=== PATIENT | male | born 1965 | race Caucasian/White ===

== ENCOUNTER → 2017-10-01 | Outpatient (CLI) | payer MEDICARE, BC ==
--- NOTE | 2017-10-01 09:57 | CT ---
EXAMINATION TYPE: CT chest wo con DATE OF EXAM: 10/01/2017 COMPARISON: NONE HISTORY: Exacerbation of asthma CT DLP: 1140.9 mGycm. Automated Exposure Control for Dose Reduction was Utilized. TECHNIQUE: CT scan of the thorax is performed without IV contrast. FINDINGS: LUNGS: There is no peribronchial cuffing or bronchiectasis. No CT sequela of small airway disease. No tree-in-bud opacities. No honeycombing. The lungs are grossly clear, there is no concerning parenchy mal mass or nodule identified. Minimal right basilar subsegmental atelectasis is seen. There is no p leural effusion or pneumothorax seen. The tracheobronchial tree is patent. MEDIASTINUM: Lack of IV contrast is noted to limit evaluation for mediastinal and especially hilar ad enopathy. There are no definitive greater than 1 cm hilar or mediastinal lymph nodes. No cardiomega ly or pericardial effusion is seen. There is mild coronary artery calcifications in the left main and left anterior descending coronary artery. Ascending thoracic aorta and main pulmonary artery and wit hin normal limits. OTHER: Bilateral retroareolar overall symmetric gynecomastia is seen. There is diffuse hypoattenuati on of the hepatic parenchyma most commonly related to hepatic steatosis with sparing around the gallb ladder fossa. Moderate multilevel degenerative changes of the thoracic spine are noted. IMPRESSION: 1. No acute intrathoracic process. Minimal right basilar subsegmental atelectasis. 2. Findings most compatible with hepatic steatosis. 3. Mild coronary artery calcifications within the left main and left anterior descending coronary art bakari, marker for coronary artery disease.
== END | disposition home or self-care (01) ==
LOC: RADCTMAIN 08:33
PROVIDERS: ATTEND Internal Medicine Critical Care Medicine
DX: I25.10 Atherosclerotic heart disease of native coronary artery without angina pectoris (principal)
CPT/HCPCS: 71250

== ENCOUNTER → 2018-01-04 | Day surgery (SDC) | payer MEDICARE, BC ==
[2017-12-26 09:47] VITALS: BMI 49.0
[~2018-01-04] MED LIST: ALPRAZolam 0.25 MG TAB PO PRN; ALPRAZolam 0.5 MG TAB PO PRN; ASPIRIN 325 MG TAB PO STA; ATORVASTATIN 80 MG TAB PO STA; HYDROcodone/APAP 7.5-325MG 1 EACH TAB PO ONE; IOPAMIDOL-370 125ML BTL INJ ONE; LIDOCAINE 2% INJ 20 MG/ML SQ ONE; MIDAZOLAM 2 MG/2 ML VIAL IV ONE; NITROGLYCERIN SL TABS 0.4 MG TAB SUBLINGUAL PRN; RX INFO: IV CONTRAST WAS GIVEN 1 EACH MISC MISCELLANE PRN; SODIUM CHLORIDE 0.9% 1,000 ML IV SCH; SODIUM CHLORIDE 0.9% 1,000 ML in EMPTY BAG 1 BAG IV ONE
[2018-01-04 07:03] VITALS: RESP 18; TEMP 98
[2018-01-04 07:12] LABS: Glucose,Whole Blood 155 mg/dL (75-99)
--- NOTE | 2018-01-04 10:00 | CC ---
CARDIAC CATHETERIZATION REPORT INDICATION: A 52-year-old gentleman with multiple coronary risk factors, who presented to me with progressively worsening exertional shortness of breath. We thought his symptoms were equivalent to angina and patient had been advised to undergo cardiac catheterization for unstable angina. He has been explained of risks, benefits and alternatives, understood and accepted. PROCEDURE NOTE: After obtaining informed consent, left heart catheterization, coronary angiogram and LV gram are performed via the right femoral artery using standard Duncan catheters. The patient received moderate conscious sedation and total sedation time was 19 minutes. A femoral angiogram was performed and Angio-Seal was deployed for hemostasis. FINDINGS: 1. HEMODYNAMICS: Left ventricular end-diastolic pressure is 24 mm. There is no significant gradient across aortic valve. 2. LEFT VENTRICULOGRAM: Left ventriculogram shows a mildly dilated left ventricle with mild LV dysfunction with an ejection fraction of 45%. 3. ANGIOGRAPHIC DATA. Left main coronary artery: Left main coronary artery is a normal-sized vessel and is free of stenosis. Divides into left anterior descending coronary artery and circumflex coronary artery. Circumflex coronary artery and its branches are free of significant stenosis. LAD shows a mild to moderate atherosclerotic plaque in its midportion. At its worse, it seems to be a 40% stenosis. Right coronary artery is a codominant vessel and is free of significant stenosis. CONCLUSIONS: 1. Mild left ventricular systolic dysfunction. 2. Elevated left ventricular end-diastolic pressures. 3. A 40% stenosis involving mid left anterior descending artery. PLAN: 1. I reviewed angiographic data with the patient and told him that his exertional shortness of breath is not related to significant obstructive coronary artery disease. 2. I encouraged him to lose weight and exercise regularly. 3. We are going to control his blood pressures optimally and if necessary, start him on a small dose of Lasix to see if his symptoms would improve. MMODL / IJN: [id number] /
[2018-01-04 10:42] VITALS: PULSE 68
[2018-01-04 14:19] VITALS: BP 143/77
== END ==
LOC: CATHCVL 06:23
PROVIDERS: ATTEND Internal Medicine Cardiovascular Disease
DX: I51.7 Cardiomegaly (principal); I25.110 Atherosclerotic heart disease of native coronary artery with unstable angina pectoris; I10 Essential (primary) hypertension; E78.2 Mixed hyperlipidemia; E66.9 Obesity, unspecified; Z68.42 Body mass index [BMI] 45.0-49.9, adult; E11.9 Type 2 diabetes mellitus without complications; Z82.49 Family history of ischemic heart disease and other diseases of the circulatory system; F32.9 Major depressive disorder, single episode, unspecified; Z79.1 Long term (current) use of non-steroidal anti-inflammatories (NSAID); Z79.899 Other long term (current) drug therapy; Z88.8 Allergy status to other drugs, medicaments and biological substances; Z79.84 Long term (current) use of oral hypoglycemic drugs
CPT/HCPCS: 93458; C1760; C1894; C1769; J2001; J2250; Q9967

== ENCOUNTER 2020-12-12 12:26 | Emergency (ER) | payer MEDICARE, BC ==
[2020-12-12 12:32] VITALS: RESP 18; TEMP 97.4
--- NOTE | 2020-12-12 12:47 | ED ---
General Adult HPI - General Chief complaint: Arrhythmia/Palpitations Stated complaint: palpitations Time Seen by Provider: 12/12/20 12:43 Source: patient Mode of arrival: wheelchair Limitations: no limitations - History of Present Illness Initial comments: Patient presents the ED complaining of having intermittent irregular heart palpitations for the past 3 days. Patient states that he can "feel it in my throat". Patient admits to having mild associated dyspnea at times. Patient denies having any palpitations or symptoms currently. Patient denies alcohol or drug use. Patient denies any recent change in his medications. Patient denies having any pain, fever or chills, headache, focal numbness/weakness/neuro deficit, chest pain or pressure, cough or cold symptoms, dizziness, syncope, abdominal pain, nausea/vomiting/diarrhea, dysuria or urinary symptoms, leg or calf swelling or pain, or any other symptoms or complaints. Patient states that he did take a full dose aspirin earlier today. - Related Data Home Medications Medication Instructions Recorded Confirmed ALPRAZolam [Xanax] 2 mg PO TID PRN 01/12/14 01/04/18 DULoxetine HCL [Cymbalta] 60 mg PO BID 01/12/14 01/04/18 Hydrocodone/Acetaminophen 1 each PO QID PRN 01/12/14 01/04/18 [Hydrocodone/Acetaminophen 7.5-325] Mineral Carbonate [Mineral 300 mg PO QAM 01/12/14 01/04/18 Carbonate ER] Metoprolol Tartrate [Lopressor] 100 mg PO BID 01/12/14 01/04/18 Omeprazole [PriLOSEC] 20 mg PO AC-BID 01/12/14 01/04/18 QUEtiapine [SEROquel] 400 mg PO HS 01/12/14 01/04/18 metFORMIN HCL [Glucophage] 1,000 mg PO BID 01/12/14 01/04/18 Albuterol Inhaler (Mhu) [Ventolin 2 puff INHALATION Q4HR PRN 02/06/14 01/04/18 Inhaler] hydroCHLOROthiazide [Hydrodiuril] 25 mg PO DAILY 02/06/14 01/04/18 INSULIN ASPART (NovoLOG) [NovoLOG] 0 unit SQ AC-TID PRN 05/23/16 01/04/18 Mineral Carbonate 600 mg PO HS 05/23/16 01/04/18 Pioglitazone [Actos] 45 mg PO DAILY 05/23/16 01/04/18 Atorvastatin [Lipitor] 80 mg PO HS 12/26/17 01/04/18 Naproxen [Naprosyn] 500 mg PO Q12HR PRN 12/26/17 01/04/18 lamoTRIgine [LaMICtal] 25 mg PO BID 12/26/17 01/04/18 Allergies Allergy/AdvReac Type Severity Reaction Status Date / Time aripiprazole [From [facility]ilify] AdvReac shakes Verified 12/12/20 12:29 Review of Systems ROS Statement: Those systems with pertinent positive or pertinent negative responses have been documented in the HPI. ROS Other: All systems not noted in ROS Statement are negative. Past Medical History Past Medical History: Asthma, Diabetes Mellitus Additional Past Medical History / Comment(s): uses CPAP History of Any Multi-Drug Resistant Organisms: None Reported Past Surgical History: Appendectomy, Back Surgery, Heart Catheterization Additional Past Surgical History / Comment(s): cervical fusion in [place] Past Anesthesia/Blood Transfusion Reactions: No Reported Reaction Past Psychological History: Bipolar, Schizophrenia Smoking Status: Never smoker Past Alcohol Use History: None Reported Past Drug Use History: None Reported - Past Family History Mother Family Medical History: No Reported History Father Family Medical History: No Reported History General Exam Limitations: no limitations General appearance: alert, in no apparent distress Head exam: Present: atraumatic, normocephalic Eye exam: Present: normal appearance, EOMI ENT exam: Present: mucous membranes moist Neck exam: Present: other (Trachea is in midline) Respiratory exam: Present: normal lung sounds bilaterally. Absent: respiratory distress, wheezes, rales, rhonchi, stridor Cardiovascular Exam: Present: regular rate, normal rhythm, normal heart sounds, other (Normal radial pulses bilaterally) GI/Abdominal exam: Present: soft, other (Obese abdomen). Absent: tenderness, guarding Extremities exam: Present: other (Negative Homans sign bilaterally). Absent: tenderness, pedal edema, calf tenderness Neurological exam: Present: alert, oriented X3. Absent: motor sensory deficit Psychiatric exam: Present: normal affect, normal mood Skin exam: Present: warm, dry, intact, normal color Course Vital Signs 12/12/20 12/12/20 12:29 13:32 Temperature 97.4 F L Pulse Rate 93 70 Respiratory 18 18 Rate Blood Pressure 120/59 125/70 O2 Sat by Pulse 97 98 Oximetry - Reevaluation(s) Reevaluation #1: 12/12/20 14:27 Patient is noted to have very occasional PVCs on the cardiac rn, which coincide with his complaint of palpitations. 12/12/20 15:12 Patient denies development of any new symptoms while in the ED. Patient continues to deny having any chest pain or dyspnea while in the ED. Patient remains alert and breathing comfortably with a normal room air oxygen saturation. Patient is aware of his test results, and he feels comfortable kade g home at this time. EKG Findings - EKG Comments: EKG Findings:: Sinus rhythm with first-degree AV block, NM interval of 236 ms, no ectopy, normal QRS duration, normal QT interval, normal axis, no ST or T-wave abnormality Medical Decision Making - Medical Decision Making Patient is noted to have very occasional PVCs on the cardiac rn, which coincide with this complaint of palpitations. I suspect that the patient's palpitations are likely secondary to these benign PVCs. Patient is also noted to have mild renal insufficiency on laboratory evaluation, and he has been hy drated with 1 L of normal saline in the ED. Patient states that he is aware of his renal insufficiency. Patient's labs are otherwise fairly unremarkable. Patient's troponin is negative. I do not suspect an emergent medical condition at this time. Patient was counseled about palpitations/PVCs and renal insufficiency. 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 Patient was clearly explained return and follow-up instructions. Patient was instructed to have a low threshold for return to the emergency department should his symptoms worsen. Patient feels comfortable with this plan. - Lab Data Result diagrams: 12/12/20 12:59 12/12/20 12:59 Lab Results 12/12/20 12/12/20 12/12/20 Range/Units 12:59 12:59 12:59 WBC 7.3 (3.8-10.6) k/uL RBC 4.23 L (4.30-5.90) m/uL Hgb 12.8 L (13.0-17.5) gm/dL Hct 37.4 L (39.0-53.0) % MCV 88.5 (80.0-100.0) fL MCH 30.2 (25.0-35.0) pg MCHC 34.1 (31.0-37.0) g/dL RDW 14.2 (11.5-15.5) % Plt Count 205 (150-450) k/uL MPV 7.3 Neutrophils % 60 % Lymphocytes % 24 % Monocytes % 9 % Eosinophils % 3 % Basophils % 1 % Neutrophils # 4.4 (1.3-7.7) k/uL Lymphocytes # 1.8 (1.0-4.8) k/uL Monocytes # 0.6 (0-1.0) k/uL Eosinophils # 0.2 (0-0.7) k/uL Basophils # 0.1 (0-0.2) k/uL PT 9.9 (9.0-12.0) sec INR 0.9 (<1.2) APTT 21.5 L (22.0-30.0) sec Sodium 138 (137-145) mmol/L Potassium 4.3 (3.5-5.1) mmol/L Chloride 101 (98-107) mmol/L Carbon Dioxide 29 (22-30) mmol/L Anion Gap 8 mmol/L BUN 21 H (9-20) mg/dL Creatinine 1.80 H (0.66-1.25) mg/dL Est GFR (CKD-EPI)AfAm 48 (>60 ml/min/1.73 sqM) Est GFR (CKD-EPI)NonAf 41 (>60 ml/min/1.73 sqM) Glucose 131 H (74-99) mg/dL Calcium 9.5 (8.4-10.2) mg/dL Magnesium 1.9 (1.6-2.3) mg/dL Total Bilirubin 0.4 (0.2-1.3) mg/dL AST 34 (17-59) U/L ALT 43 (4-49) U/L Alkaline Phosphatase 86 (38-126) U/L Troponin I (0.000-0.034) ng/mL Total Protein 7.4 (6.3-8.2) g/dL Albumin 4.4 (3.5-5.0) g/dL TSH 1.690 (0.465-4.680) mIU/L Mineral 0.3 mmol/L 05/16/21 Range/Units 12:59 WBC (3.8-10.6) k/uL RBC (4.30-5.90) m/uL Hgb (13.0-17.5) gm/dL Hct (39.0-53.0) % MCV (80.0-100.0) fL MCH (25.0-35.0) pg MCHC (31.0-37.0) g/dL RDW (11.5-15.5) % Plt Count (150-450) k/uL MPV Neutrophils % % Lymphocytes % % Monocytes % % Eosinophils % % Basophils % % Neutrophils # (1.3-7.7) k/uL Lymphocytes # (1.0-4.8) k/uL Monocytes # (0-1.0) k/uL Eosinophils # (0-0.7) k/uL Basophils # (0-0.2) k/uL PT (9.0-12.0) sec INR (<1.2) APTT (22.0-30.0) sec Sodium (137-145) mmol/L Potassium (3.5-5.1) mmol/L Chloride (98-107) mmol/L Carbon Dioxide (22-30) mmol/L Anion Gap mmol/L BUN (9-20) mg/dL Creatinine (0.66-1.25) mg/dL Est GFR (CKD-EPI)AfAm (>60 ml/min/1.73 sqM) Est GFR (CKD-EPI)NonAf (>60 ml/min/1.73 sqM) Glucose (74-99) mg/dL Calcium (8.4-10.2) mg/dL Magnesium (1.6-2.3) mg/dL Total Bilirubin (0.2-1.3) mg/dL AST (17-59) U/L ALT (4-49) U/L Alkaline Phosphatase (38-126) U/L Troponin I <0.012 (0.000-0.034) ng/mL Total Protein (6.3-8.2) g/dL Albumin (3.5-5.0) g/dL TSH (0.465-4.680) mIU/L Mineral mmol/L - Radiology Data Radiology results: report reviewed (Chest x-ray: No acute process) Disposition Clinical Impression: Palpitations, Renal insufficiency, PVCs (premature ventricular contractions) Disposition: HOME SELF-CARE Condition: Stable Instructions (If sedation given, give patient instructions): Heart Palpitations (ED), Premature Ventricular Contractions (ED) Additional Instructions: Return to the ER immediately should you develop worsening or more persistent heart palpitations, chest pain, shortness of breath, feeling dizzy or faint, or new or worsening symptoms. Follow up closely with your primary care provider. Is patient prescribed a controlled substance at d/c from ED?: No Referrals: Kaylah Stock DO [Primary Care Provider] - 1-2 days Time of Disposition: 15:14
[2020-12-12 13:17] LABS: Basophils # (A) 0.1 k/uL (0-0.2); Basophils % (A) 1 %; Eosinophils # (A) 0.2 k/uL (0-0.7); Eosinophils % (A) 3 %; HCT 37.4 % (39.0-53.0); HGB 12.8 gm/dL (13.0-17.5); Lymphocytes # (A) 1.8 k/uL (1.0-4.8); Lymphocytes % (A) 24 %; MCH 30.2 pg (25.0-35.0); MCHC 34.1 g/dL (31.0-37.0); MCV 88.5 fL (80.0-100.0); Mean Platelet Volume 7.3; Monocytes # (A) 0.6 k/uL (0-1.0); Monocytes % (A) 9 %; Neutrophils # (A) 4.4 k/uL (1.3-7.7); Neutrophils % (A) 60 %; Platelet Count 205 k/uL (150-450); RBC 4.23 m/uL (4.30-5.90); RDW 14.2 % (11.5-15.5); WBC 7.3 k/uL (3.8-10.6)
--- NOTE | 2020-12-12 13:23 | XR ---
EXAMINATION TYPE: XR chest 2V DATE OF EXAM: 12/12/2020 COMPARISON: 01/27/2014 TECHNIQUE: PA and lateral views submitted. HISTORY: Dysrhythmia FINDINGS: The lungs are clear and there is no pneumothorax, pleural effusion, or focal pneumonia. Heart size normal. No failure. Arthropathy of the shoulders. IMPRESSION: 1. No acute process.
[2020-12-12 13:25] LABS: Albumin 4.4 g/dL (3.5-5.0); Calcium 9.5 mg/dL (8.4-10.2); Lithium 0.3 mmol/L; Magnesium 1.9 mg/dL (1.6-2.3); Potassium 4.3 mmol/L (3.5-5.1); Total Bilirubin 0.4 mg/dL (0.2-1.3); Total Protein 7.4 g/dL (6.3-8.2)
[2020-12-12 13:33] LABS: INR 0.9 (<1.2); Prothrombin Time 9.9 sec (9.0-12.0)
[2020-12-12 13:36] LABS: Partial Thromboplastin Time 21.5 sec (22.0-30.0)
[2020-12-12] MEDS ORDERED: SODIUM CHLORIDE 0.9% 1,000 ML IV ONE (13:59)
[2020-12-12 14:32] VITALS: BP 125/70; PULSE 70
== END 2020-12-12 15:36 | disposition home or self-care (01) ==
LOC: EC 12:26
DX: I49.3 Ventricular premature depolarization (principal); N28.9 Disorder of kidney and ureter, unspecified; R06.00 Dyspnea, unspecified; E11.9 Type 2 diabetes mellitus without complications; J45.909 Unspecified asthma, uncomplicated; F20.9 Schizophrenia, unspecified; F31.9 Bipolar disorder, unspecified; Z79.4 Long term (current) use of insulin; Z79.1 Long term (current) use of non-steroidal anti-inflammatories (NSAID)
CPT/HCPCS: 36415; 71046; 80053; 80178; 83735; 84443; 84484; 85025; 85610; 85730; 93005; 99285

== ENCOUNTER → 2021-05-26 | Day surgery (SDC) | payer MEDICARE, BC ==
[~2021-05-26] MED LIST changes: -ALPRAZolam 0.25 MG TAB PO PRN; -ALPRAZolam 0.5 MG TAB PO PRN; -ASPIRIN 325 MG TAB PO STA; -ATORVASTATIN 80 MG TAB PO STA; -HYDROcodone/APAP 7.5-325MG 1 EACH TAB PO ONE; -IOPAMIDOL-370 125ML BTL INJ ONE; +KETAMINE 10 MG/ML 20 ML VIAL ONE; +LACTATED RINGERS 1,000 ML IV SCH; +LIDOCAINE 1% (10MG/ML) FOR IV START INTRADERMA PRN; +LIDOCAINE 1% INJ 10MG/ML (20 ML MDV) ONE; -LIDOCAINE 2% INJ 20 MG/ML SQ ONE; -MIDAZOLAM 2 MG/2 ML VIAL IV ONE; +MIDAZOLAM 2 MG/2 ML VIAL ONE; -NITROGLYCERIN SL TABS 0.4 MG TAB SUBLINGUAL PRN; +PROPOFOL 10 MG/ML 20 ML VIAL IV ONE; -RX INFO: IV CONTRAST WAS GIVEN 1 EACH MISC MISCELLANE PRN; -SODIUM CHLORIDE 0.9% 1,000 ML IV SCH; -SODIUM CHLORIDE 0.9% 1,000 ML in EMPTY BAG 1 BAG IV ONE; +SODIUM CHLORIDE 0.9% 500 ML 500 ML IV ONE
[2021-05-26 07:47] VITALS: TEMP 98.1
[2021-05-26 07:48] LABS: Glucose,Whole Blood 143 mg/dL (75-99)
--- NOTE | 2021-05-26 08:05 | P.GSHP ---
History of Present Illness H&P Date: 05/26/21 Chief Complaint: Anemia This is a 55-year-old male who presents today for EGD and colonoscopy. He's had issues anemia. He has had black stools however he has been on iron replacement. Past Medical History Past Medical History: Asthma, Diabetes Mellitus, Hyperlipidemia, Hypertension, Mitral Valve Prolapse (MVP), Sleep Apnea/CPAP/BIPAP Additional Past Medical History / Comment(s): uses CPAP. SWELLING OF LOWER EXTREMITIES. History of Any Multi-Drug Resistant Organisms: MRSA Date of last positivie culture/infection: APPROXIMATELY 2.5 MONTHS AGO (MAYBE JANUARY 2021). MDRO Source:: COCCYX Past Surgical History: Appendectomy, Back Surgery, Heart Catheterization Additional Past Surgical History / Comment(s): cervical fusion in [place]. EPIDURAL SURGERY Past Anesthesia/Blood Transfusion Reactions: No Reported Reaction Past Psychological History: Bipolar, Schizophrenia Smoking Status: Never smoker Past Alcohol Use History: None Reported Past Drug Use History: None Reported - Past Family History Mother Family Medical History: No Reported History Father Family Medical History: No Reported History Medications and Allergies Home Medications Medication Instructions Recorded Confirmed Type ALPRAZolam [Xanax] 2 mg PO BID@0800,2100 01/12/14 05/26/21 History DULoxetine HCL [Cymbalta] 60 mg PO BID 01/12/14 05/26/21 History Omeprazole [PriLOSEC] 20 mg PO BID 01/12/14 05/26/21 History QUEtiapine [SEROquel] 400 mg PO HS 01/12/14 05/26/21 History metFORMIN HCL [Glucophage] 1,000 mg PO BID 01/12/14 05/26/21 History Pioglitazone [Actos] 45 mg PO QAM 05/23/16 05/26/21 History Atorvastatin [Lipitor] 80 mg PO QAM 12/26/17 05/26/21 History ALPRAZolam [Xanax] 1 mg PO DAILY@1400 12/12/20 05/26/21 History Albuterol Inhaler [Ventolin Hfa 1 puff INHALATION RT-Q4H PRN 12/12/20 05/26/21 History Inhaler] Allopurinol [Zyloprim] 300 mg PO QAM 12/12/20 05/26/21 History Aspirin EC [Ecotrin] 325 mg PO DAILY 12/12/20 05/26/21 History HYDROcodone/APAP 5-325MG [[place] 1 tab PO BID 12/12/20 05/26/21 History 5-325] Lisinopril [Prinivil] 10 mg PO BID 12/12/20 05/26/21 History Metoprolol Tartrate [Lopressor] 25 mg PO QAM 12/12/20 05/26/21 History lamoTRIgine [LaMICtal] 200 mg PO HS 12/12/20 05/26/21 History Furosemide [Lasix] 40 mg PO QAM 05/23/21 05/26/21 History QUEtiapine [SEROquel] 100 mg PO HS 05/23/21 05/26/21 History Allergies Allergy/AdvReac Type Severity Reaction Status Date / Time aripiprazole [From [facility]] AdvReac shakes Verified 05/26/21 07:35 Surgical - Exam Vital Signs Temp Pulse Resp BP Pulse Ox 98.1 F 89 18 125/64 97 05/26/21 07:41 05/26/21 07:41 05/26/21 07:41 05/26/21 07:41 05/26/21 07:41 - General well developed, well nourished, no distress - Eyes PERRL - ENT normal pinna - Neck no masses - Respiratory normal expansion - Cardiovascular Rhythm: regular - Abdomen Abdomen: soft, non tender Results - Labs Abnormal Lab Results - Last 24 Hours (Table) 05/26/21 Range/Units 07:41 POC Glucose (mg/dL) 143 H (75-99) mg/dL Assessment and Plan Assessment: Anemia. We'll perform EGD and colonoscopy
--- NOTE | 2021-05-26 08:37 | P.OP ---
Date of Procedure: 05/26/21 Preoperative Diagnosis: Anemia Postoperative Diagnosis: Antral gastritis Normal colonoscopy, poor colonic prep Procedure(s) Performed: EGD Colonoscopy Anesthesia: MAC Surgeon: Jay Miner Pathology: other (Antrum) Condition: stable Disposition: PACU Description of Procedure: The patient's placed on the endoscopy table in the lateral position. He received IV sedation. The gastroscope placed oropharynx passed in the esophagus and stomach. Scope was then placed through the pylorus. The first and second portion of the duodenum appeared normal. Scope was then brought back the antrum this. Minimally inflamed. Biopsies performed. Scope was unretroflexed and remainder of the stomach appeared normal. There was no evidence of GI bleed. The GE junction was at 40 cm. The distal esophagus appeared normal. The proximal esophagus was normal. Scope was brought patient. Next digital rectal exam was performed which revealed a few external hemorrhoids. The flexible colonoscope was then placed patient anus and passed throughout the entire colon. The patient had a poor colonic prep. There was a large amount of liquid stool in the colon. The cecum was visualized. There was a solid piece of stool cecum which prevented close examination mucosa. No obvious mass was seen in the cecum, the right colon and transverse colon appeared normal. However there was significant amount of liquid stool in the colon. The descending and sigmoid colon appeared normal. The scope was brought back the rectum and this appeared normal. There was no evidence of GI bleed in the upper and lower GI tract. However the view of the colon was limited due to the poor colonic prep.
[2021-05-26 08:47] VITALS: RESP 16
[2021-05-26 09:00] VITALS: BP 120/73; PULSE 83
== END ==
LOC: ORWHC2ENDO 07:04
PROVIDERS: ATTEND Surgery
DX: K29.50 Unspecified chronic gastritis without bleeding (principal); D64.9 Anemia, unspecified; K64.4 Residual hemorrhoidal skin tags; J45.909 Unspecified asthma, uncomplicated; E11.9 Type 2 diabetes mellitus without complications; E78.5 Hyperlipidemia, unspecified; I25.10 Atherosclerotic heart disease of native coronary artery without angina pectoris; I10 Essential (primary) hypertension; I34.1 Nonrheumatic mitral (valve) prolapse; G47.33 Obstructive sleep apnea (adult) (pediatric); M79.89 Other specified soft tissue disorders; Z86.14 Personal history of Methicillin resistant Staphylococcus aureus infection; Z98.1 Arthrodesis status; Z98.890 Other specified postprocedural states; F31.9 Bipolar disorder, unspecified; F20.9 Schizophrenia, unspecified; E66.01 Morbid (severe) obesity due to excess calories; Z68.42 Body mass index [BMI] 45.0-49.9, adult; Z79.84 Long term (current) use of oral hypoglycemic drugs; Z88.8 Allergy status to other drugs, medicaments and biological substances; Z79.891 Long term (current) use of opiate analgesic; Z79.899 Other long term (current) drug therapy
CPT/HCPCS: 88305; 45378; 43239; J2250; J2001; J2704

== ENCOUNTER → 2023-01-10 | Outpatient (CLI) | payer MEDICARE, BC ==
[2023-01-10 15:02] LABS: HCT 44.6 % (39.6-50.0); HGB 15.1 d/dL (12.0-15.0); MCH 28.7 pg (27.0-32.0); MCHC 33.9 d/dL (32.0-37.0); MCV 84.6 FL (80.0-97.0); Mean Platelet Volume 9.7 FL (9.5-12.2); NRBC Per 100 WBC 0 X 10*3/uL (0.00-0.01); Platelet Count 178 X 10*3/uL (140-440); RBC 5.27 X 10*6/uL (4.40-5.60); RDW 13.5 % (11.5-14.5); WBC 8.16 X 10*3/uL (4.50-10.00)
[2023-01-10 15:41] LABS: Blood Urea Nitrogen 19.4 mg/dL (9.0-27.0); Carbon Dioxide 22.5 mmol/L (21.6-31.8); Chloride 93 mmol/L (96-109); Potassium 4.4 mmol/L (3.5-5.5); Sodium 131 mmol/L (135-145)
== END | disposition home or self-care (01) ==
LOC: LABPAT 10:24
PROVIDERS: ATTEND Internal Medicine Interventional Cardiology
DX: Z01.812 Encounter for preprocedural laboratory examination (principal); I25.10 Atherosclerotic heart disease of native coronary artery without angina pectoris
CPT/HCPCS: 36415; 80051; 82565; 84520; 85027

== ENCOUNTER 2023-01-12 09:01 | Day surgery (SDC) | payer MEDICARE, BC ==
[~2023-01-12 09:01] MED LIST changes: +ALPRAZolam 0.25 MG TAB PO PRN; +ALPRAZolam 0.5 MG TAB PO PRN; +ASPIRIN 325 MG TAB PO STA; +ATORVASTATIN 80 MG TAB PO STA; +HEPARIN SODIUM,PORCINE 10,000 UNIT in SODIUM CHLORIDE 0.9% 1,000 ML IRRIGATION PRN; +HEPARIN SODIUM,PORCINE 2,500 UNIT in SODIUM CHLORIDE 0.9% 250 ML IRRIGATION PRN; -KETAMINE 10 MG/ML 20 ML VIAL ONE; -LACTATED RINGERS 1,000 ML IV SCH; -LIDOCAINE 1% (10MG/ML) FOR IV START INTRADERMA PRN; -LIDOCAINE 1% INJ 10MG/ML (20 ML MDV) ONE; -MIDAZOLAM 2 MG/2 ML VIAL ONE; +NITROGLYCERIN SL TABS 0.4 MG TAB SUBLINGUAL PRN; -PROPOFOL 10 MG/ML 20 ML VIAL IV ONE; -SODIUM CHLORIDE 0.9% 500 ML 500 ML IV ONE
[2023-01-12] MEDS ORDERED: SODIUM CHLORIDE 0.9% 500 ML 500 ML IV ONE ×2 (09:07→13:00)
[2023-01-12] MEDS: SODIUM CHLORIDE 0.9% 1,000 ML in EMPTY BAG 1 BAG IV SCH ×4 (09:20→20:07)
[2023-01-12] MEDS: INSULIN ASPART (NovoLOG) 100 UNIT/ML VIAL SQ SCH ×4 (09:33→21:11)
[2023-01-12 09:40] LABS: Glucose,Whole Blood 225 mg/dL (70-110)
[2023-01-12 10:01] LABS: INR 0.9 (<1.2); Prothrombin Time 10.1 sec (9.0-12.0)
[2023-01-12] MEDS ORDERED: VERAPAMIL 2.5 MG/ML 2 ML AMP ONE (11:17)
[2023-01-12] MEDS ORDERED: fentaNYL (PF) 50 MCG/ML 2 ML AMP ONE (12:28)
[2023-01-12] MEDS: HEPARIN SODIUM 1,000 UN/ML (10ML VL) IV ONE ×2 (12:29→12:45)
[2023-01-12] MEDS ORDERED: VERAPAMIL SYRINGE (5 MG/10 ML) INTRAARTER ONE (12:29)
[2023-01-12] MEDS ORDERED: fentaNYL (PF) 50 MCG/1 ML VIAL IV ONE ×2 (12:29)
[2023-01-12] MEDS ORDERED: MIDAZOLAM 2 MG/2 ML VIAL IV ONE ×2 (12:29→12:44)
[2023-01-12] MEDS ORDERED: LIDOCAINE 1% INJ 10MG/ML (5 ML VIAL-PF) SQ ONE (12:29)
[2023-01-12] MEDS ORDERED: PRASUGREL 10 MG TAB ONE (12:41)
[2023-01-12] MEDS ORDERED: PRASUGREL 10 MG TAB PO ONE (12:45)
[2023-01-12] MEDS ORDERED: IOPAMIDOL-370 100ML BTL INJ ONE ×2 (12:57→13:09)
[2023-01-12] MEDS ORDERED: ZOLPIDEM 5 MG TAB PO PRN (13:06)
[2023-01-12] MEDS ORDERED: ATROPINE SULFATE 0.1 MG/ML 10ML SYRINGE IV PRN (13:06)
[2023-01-12] MEDS ORDERED: RX INFO: IV CONTRAST WAS GIVEN 1 EACH MISC MISCELLANE PRN (13:06)
[2023-01-12] MEDS ORDERED: MAG HYDROX/AL HYDROX/SIMETH 30 ML CUP PO PRN (13:06)
[2023-01-12] MEDS ORDERED: NITROGLYCERIN SL TABS 0.4 MG TAB SUBLINGUAL PRN (13:06)
[2023-01-12 17:01] LABS: Glucose,Whole Blood 297 mg/dL (70-110)
[2023-01-12] MEDS: SODIUM CHLORIDE 0.9% 1,000 ML IV SCH (20:07)
[2023-01-12] MEDS: HYDROcodone/APAP 5-325MG 1 EACH TAB PO SCH (20:08)
[2023-01-12] MEDS: DULoxetine HCL 60 MG CAPSULE.DR PO SCH (20:09)
[2023-01-12] MEDS: PANTOPRAZOLE 40 MG TABLET PO SCH (20:09)
[2023-01-12] MEDS: lisinopriL 10 MG TAB PO SCH (20:10)
[2023-01-12 20:59] LABS: Glucose,Whole Blood 413 mg/dL (70-110)
[2023-01-12] MEDS ORDERED: QUEtiapine 100 MG TAB PO SCH (21:00)
[2023-01-12] MEDS ORDERED: QUEtiapine 400 MG TAB PO SCH (21:00)
--- NOTE | 2023-01-12 23:09 | P.PCN ---
Date of Procedure: 01/12/23 Operative Findings: Cardiac catheterization and percutaneous coronary intervention Performing physician Louie ARTHUR MD Procedure performed 1. Selective right and left coronary angiogram 2. Left heart catheterization 3. Successful stenting of the mid LAD using 4.0 x 18 mm Xience LUIS with an excellent angiographic results with adjunctive use of IVUS 4. Ultrasound-guided access of the right radial artery Indication Chest discomfort concerning for unstable angina in this 57-year-old gentleman who is known to have CAD as well as diabetes and hypertension and dyslipidemia Approach The right radial artery Complication None Level of sedation Moderate sedation length of 33 minutes Procedure description After obtaining an informed consent the patient was brought to the cardiac [employer]. The right radial artery was cannulated using micropuncture technique, the micropuncture wire passed easily then a place a 6 [place] sheath at the right radial artery. The right radial artery access was performed using ultrasound. Subsequently selective right and left coronary angiogram was performed using JR4 and JL 3.5 catheters. Then I did intervene on the LAD. The procedure was completed was no complication Selective coronary angiogram The RCA is a large caliber vessel and a dominant vessel with mild disease only. The left main is angiographically normal and pay for gas into an LCx and LAD The LCx is a large caliber vessel and nondominant vessel with mild disease only. Gives rises into a large OM branch which appeared to have mild disease on only a The LAD is a large caliber vessel. The LAD in the midportion appears to have a tight lesion in the range of 70-80% PCI of the LAD Anticoagulation was initiated using heparin with continuous ACT monitoring. Subsequently I did engage the left main using JL 3.5 guiding catheter. After that I did wire the LAD using running through wire. Intravascular ultrasound was performed and showed a diameter of the LAD around 5 mm was calcifications. A predilated using 3.5 mm balloon before I deployed 4.0 x 18 mm stent or the stent was positioned under fluoroscopy guidance and deployed and there is no anal pressure. Intravascular ultrasound was performed again and showed that the stent was not completely expanded. A post dilated using 4 mm noncompliant colon. Final angiogram showed excellent angiographic results and the procedure was completed was no complication Conclusion Severe disease involving the mid LAD. I did perform successful stenting of the LAD Postprocedure management Dual antiplatelet therapy using aspirin and Effient for 12 month Follow-up with the patient
[2023-01-13] MEDS: SODIUM CHLORIDE 0.9% 1,000 ML in EMPTY BAG 1 BAG IV SCH ×3 (00:14→09:19)
[2023-01-13] MEDS: SODIUM CHLORIDE 0.9% 1,000 ML IV SCH (02:18)
[2023-01-13 06:00] LABS: Glucose,Whole Blood 305 mg/dL (70-110)
[2023-01-13] MEDS: INSULIN ASPART (NovoLOG) 100 UNIT/ML VIAL SQ SCH (06:06)
[2023-01-13 07:12] LABS: African American GFR (CKD) 82 (>60 ml/min/1.73 sqM); Non-African American GFR(CKD) 71 (>60 ml/min/1.73 sqM)
[2023-01-13 08:21] VITALS: BP 157/89; PULSE 98; RESP 16; TEMP 98
[2023-01-13] MEDS ORDERED: MULTIVITAMINS, THERA 1 EACH TAB PO SCH (09:00)
[2023-01-13] MEDS ORDERED: PRASUGREL 10 MG TAB PO SCH (09:00)
[2023-01-13] MEDS ORDERED: ATORVASTATIN 80 MG TAB PO SCH (09:00)
[2023-01-13] MEDS ORDERED: MONTELUKAST 10 MG TAB PO SCH (09:00)
[2023-01-13] MEDS ORDERED: allopurinoL 300 MG TAB PO SCH (09:00)
[2023-01-13] MEDS ORDERED: FUROSEMIDE 40 MG TAB PO SCH (09:00)
[2023-01-13] MEDS ORDERED: METOPROLOL TARTRATE 25 MG TAB PO SCH (09:00)
--- NOTE | 2023-01-13 09:20 | P.DS ---
Providers Attending physician: Louie Lopez Consults: 01/12/23 13:06 Consult Physician Routine Consulting Provider: [facility] Consult Reason/Comments: Post Interventional patient Do you want consulting provider notified?: Already Contacted Primary care physician: Kaylah Thomas Hospital Course: The patient is a 58-year-old gentleman who underwent yesterday a heart catheterization and stenting of the LAD with a good angiographic results and no complication. He was seen this morning. He is asymptomatic and hemodynamically stable. The patient is going to be discharged home on dual therapy because he was receiving Coumadin for atrial fibrillation. I will follow-up with the patient in a week in the office Plan - Discharge Summary Discharge Rx Participant: Yes New Discharge Prescriptions: New Prasugrel [Effient] 10 mg PO DAILY #90 tablet Continue Omeprazole [PriLOSEC] 20 mg PO BID ALPRAZolam [Xanax] 1 mg PO TID DULoxetine HCL [Cymbalta] 60 mg PO BID Atorvastatin [Lipitor] 80 mg PO QAM HYDROcodone/APAP 5-325MG [Collins 5-325] 1 tab PO BID Aspirin EC [Ecotrin] 325 mg PO DAILY Albuterol Inhaler [Ventolin Hfa Inhaler] 1 puff INHALATION RT-Q4H PRN PRN Reason: Shortness Of Breath Furosemide [Lasix] 40 mg PO QAM Multivitamins, Thera [Multivitamin (formulary)] 1 tab PO DAILY Warfarin [Coumadin] 5 mg PO DAILY Metoprolol Tartrate [Lopressor] 25 mg PO QAM lisinopriL [Prinivil] 10 mg PO BID allopurinoL [Zyloprim] 300 mg PO QAM QUEtiapine [SEROquel] 500 mg PO HS Montelukast Sodium 10 mg PO DAILY Discharge Medication List ALPRAZolam [Xanax] 1 mg PO TID 01/12/14 [History] DULoxetine HCL [Cymbalta] 60 mg PO BID 01/12/14 [History] Omeprazole [PriLOSEC] 20 mg PO BID 01/12/14 [History] Atorvastatin [Lipitor] 80 mg PO QAM 12/26/17 [History] Albuterol Inhaler [Ventolin Hfa Inhaler] 1 puff INHALATION RT-Q4H PRN 12/12/20 [History] Aspirin EC [Ecotrin] 325 mg PO DAILY 12/12/20 [History] HYDROcodone/APAP 5-325MG [Collins 5-325] 1 tab PO BID 12/12/20 [History] Metoprolol Tartrate [Lopressor] 25 mg PO QAM 12/12/20 [History] allopurinoL [Zyloprim] 300 mg PO QAM 12/12/20 [History] lisinopriL [Prinivil] 10 mg PO BID 12/12/20 [History] Furosemide [Lasix] 40 mg PO QAM 05/23/21 [History] QUEtiapine [SEROquel] 500 mg PO HS 05/23/21 [History] Montelukast Sodium 10 mg PO DAILY 01/10/23 [History] Multivitamins, Thera [Multivitamin (formulary)] 1 tab PO DAILY 01/10/23 [History] Warfarin [Coumadin] 5 mg PO DAILY 01/12/23 [History] Prasugrel [Effient] 10 mg PO DAILY #90 tablet 01/13/23 [Rx] Follow up Appointment(s)/Referral(s): Louie Lopez MD [STAFF PHYSICIAN] - 1 Week (APPOINTMENT MADE ON December @ 3:00PM ) Patient Instructions/Handouts: Moderate Sedation (DC), After Radial Heart Catheterization (GEN) Activity/Diet/Wound Care/Special Instructions: *NO LIFTING, PUSHING, OR PULLING ANYTHING OVER 5 POUNDS FOR 5 DAYS *NO DRIVING FOR 3 DAYS *YOU CAN REMOVE YOUR DRESSING AND SHOWER TOMORROW BUT DO NOT SUBMERSE YOUR PUNCTURE SITE IN WATER FOR A FEW DAYS TO PREVENT INFECTION - SO NO TUB BATHS, POOLS, HOT TUBS, DISHES...ETC *ANY SIGNS OF BLEEDING (HARDNESS, SWELLING, OR EXCESSIVE BRUISING) HOLD DIRECT PRESSURE ON YOUR PUNCTURE SITE AND COME TO THE NEAREST EMERGENCY ROOM TO GET YOUR PUNCTURE SITE LOOKED AT - DO NOT DRIVE YOURSELF! EITHER CALL EMS OR HAVE SOMEONE DRIVE YOU!
[2023-01-13] MEDS: lisinopriL 10 MG TAB PO SCH (10:22)
[2023-01-13] MEDS: HYDROcodone/APAP 5-325MG 1 EACH TAB PO SCH (10:23)
[2023-01-13] MEDS: DULoxetine HCL 60 MG CAPSULE.DR PO SCH (10:23)
[2023-01-13] MEDS: PANTOPRAZOLE 40 MG TABLET PO SCH (10:23)
[2023-01-13 10:27] VITALS: BMI 47.7
== END 2023-01-13 11:39 | disposition home or self-care (01) ==
LOC: CATHCVL 09:01 → 6NMEDSUR 13:05 → CATHCVL 01-13 11:39
PROVIDERS: ATTEND Internal Medicine Interventional Cardiology
DX: I25.10 Atherosclerotic heart disease of native coronary artery without angina pectoris (principal); I10 Essential (primary) hypertension; E78.5 Hyperlipidemia, unspecified; E11.9 Type 2 diabetes mellitus without complications; Z82.49 Family history of ischemic heart disease and other diseases of the circulatory system; Z79.82 Long term (current) use of aspirin; Z79.899 Other long term (current) drug therapy
CPT/HCPCS: 94760; 92978; 93454; 82565; 85610; C9600; C1887; C1769 ×2; C1894; C1725 ×2; C1753; C1874; J2250; J2001; J1644; Q9967; J3010

== ENCOUNTER 2023-05-31 06:16 | Day surgery (SDC) | payer MEDICARE, BC ==
[2023-05-29 14:55] VITALS: BMI 45.9
[2023-05-31] MEDS ORDERED: LACTATED RINGERS 1,000 ML IV ONE (07:12)
[2023-05-31] MEDS ORDERED: LIDOCAINE 2%-EPI 1:100,000 20 ML VIAL ONE (07:27)
[2023-05-31] MEDS ORDERED: PROPOFOL 10 MG/ML 20 ML VIAL IV ONE (07:27)
[2023-05-31 07:30] LABS: Glucose,Whole Blood 179 mg/dL (70-110)
[2023-05-31 07:33] LABS: INR 1.7 (<1.2); Prothrombin Time 17.4 sec (10.0-12.5)
[2023-05-31 07:41] VITALS: TEMP 97.6
--- NOTE | 2023-05-31 08:00 | P.PCN ---
Date of Procedure: 05/31/23 Operative Findings: Cardioversion Report Performing physician Louie Lopez M.D. Procedure performed Successful cardioversion of atrial fibrillation to normal sinus mechanism using 200 J at first attempt Indication Symptomatic atrial fibrillation Complication None Level of sedation The procedure was performed under deep sedation using propofol with RPG PROGRAMMER ANALYST in the room Procedure description After obtaining an informed consent the patient was brought to the recovery room. Sedation was introduced using propofol with RPG PROGRAMMER ANALYST in the room. Subsequently the patient cardioverted from atrial fibrillation to normal sinus mechanism using 200 J and first attempt Conclusion Successful cardioversion of atrial fibrillation to normal sinus mechanism using 200 J Postprocedure management Continue the current medical regimen Continue oral anticoagulation Follow-up with the patient
[2023-05-31 09:12] VITALS: BP 126/81; PULSE 78; RESP 16
== END 2023-05-31 09:15 | disposition home or self-care (01) ==
LOC: OR 06:16
PROVIDERS: ATTEND Internal Medicine Interventional Cardiology
DX: I48.0 Paroxysmal atrial fibrillation (principal); I25.10 Atherosclerotic heart disease of native coronary artery without angina pectoris; I12.9 Hypertensive chronic kidney disease with stage 1 through stage 4 chronic kidney disease, or unspecified chronic kidney disease; E11.22 Type 2 diabetes mellitus with diabetic chronic kidney disease; N18.9 Chronic kidney disease, unspecified; G47.33 Obstructive sleep apnea (adult) (pediatric); E78.5 Hyperlipidemia, unspecified; E66.3 Overweight; K21.9 Gastro-esophageal reflux disease without esophagitis; F31.9 Bipolar disorder, unspecified; Z95.5 Presence of coronary angioplasty implant and graft; Z79.02 Long term (current) use of antithrombotics/antiplatelets; Z79.01 Long term (current) use of anticoagulants; Z79.84 Long term (current) use of oral hypoglycemic drugs; Z79.899 Other long term (current) drug therapy; Z88.8 Allergy status to other drugs, medicaments and biological substances
CPT/HCPCS: 92960; 85610; J2704

== ENCOUNTER 2023-12-31 08:35 | Day surgery (SDC) | payer MEDICARE, BC ==
[~2023-12-31 08:35] MED LIST changes: -ASPIRIN 325 MG TAB PO STA; -ATORVASTATIN 80 MG TAB PO STA; -HEPARIN SODIUM,PORCINE 10,000 UNIT in SODIUM CHLORIDE 0.9% 1,000 ML IRRIGATION PRN; -HEPARIN SODIUM,PORCINE 2,500 UNIT in SODIUM CHLORIDE 0.9% 250 ML IRRIGATION PRN
[2023-12-31] MEDS: SODIUM CHLORIDE 0.9% 1,000 ML in EMPTY BAG 1 BAG IV SCH (08:48)
[2023-12-31] MEDS: ASPIRIN 325 MG TAB PO STA (08:48)
[2023-12-31] MEDS: SODIUM CHLORIDE 0.9% 1,000 ML IV ONE (08:52)
[2023-12-31 09:00] LABS: Glucose,Whole Blood 156 mg/dL (70-110)
[2023-12-31 13:22] VITALS: RESP 16; TEMP 98.1
[2023-12-31] MEDS ORDERED: VERAPAMIL 2.5 MG/ML 2 ML AMP ONE (13:51)
[2023-12-31] MEDS: LIDOCAINE 1% INJ 10MG/ML (20 ML MDV) SQ ONE (14:06)
[2023-12-31] MEDS: MIDAZOLAM 2 MG/2 ML VIAL IVP ONE ×2 (14:06→14:12)
[2023-12-31] MEDS: VERAPAMIL SYRINGE (5 MG/10 ML) INTRAARTER ONE (14:06)
[2023-12-31] MEDS: HYDROmorphone 0.5 MG/0.5 ML SYRINGE IVP ONE (14:07)
[2023-12-31] MEDS: HEPARIN SODIUM 1,000 UN/ML (10ML VL) IVP ONE (14:09)
[2023-12-31] MEDS ORDERED: RX INFO: IV CONTRAST WAS GIVEN 1 EACH MISC MISCELLANE PRN (14:16)
--- NOTE | 2023-12-31 14:20 | P.PCN ---
Date of Procedure: 12/31/23 Operative Findings: CARDIAC CATHETERIZATION PERFORMING PHYSICIAN: Louie Lopez MD, RPVI PROCEDURE PERFORMED: 1. Selective right and left coronary angiogram 2. Left heart catheterization 3. Ultrasound-guided access of the right radial artery INDICATION: Symptomatic 58-year-old gentleman with abnormal stress test COMPLICATION: None APPROACH: Right radial artery LEVEL OF SEDATION: Moderate with a sedation length of 8 minutes PROCEDURE DESCRIPTION: After obtaining an informed consent, the patient was brought to cardiac electrical laboratory technician. Local anesthesia was performed using lidocaine subcutaneously. The right radial artery was cannulated using Seldinger technique, the guidewire passed easily, following that we advanced a 5-Stateless sheath dilator assembly, the wire and dilator were removed and sheath was flushed. Following that, 2 mg of verapamil along with 5000 unit heparin were given. Selective right and left coronary angiogram using a 6-Stateless JR4 and JL 3.5 catheters. Following that we did left heart catheterization using 6-Stateless pigtail catheter. The procedure was completed there was no complication. SELECTIVE CORONARY ANGIOGRAM: The right coronary artery: Large-caliber vessel and a dominant vessel and appears to be angiographically normal Left main: Is angiographically normal The left circumflex: Large-caliber vessel nondominant vessel appears to be angiographically normal and gives rise into a large OM branch The left anterior descending artery: Large-caliber vessel with with a stent in the midportion appears to be patent HEMODYNAMICS: LVEDP was about 18 mmHg with no significant gradient across aortic valve CONCLUSION: 1. Patent stent in the LAD 2. Mildly elevated left-sided filling pressure POSTPROCEDURE MANAGEMENT: Medical treatment
[2023-12-31] MEDS: IOPAMIDOL-370 100ML BTL IVP ONE (14:27)
[2023-12-31] MEDS ORDERED: SODIUM CHLORIDE 0.9% 1,000 ML IV SCH (14:30)
[2023-12-31 17:10] VITALS: BP 144/77; PULSE 76
== END 2023-12-31 17:47 | disposition home or self-care (01) ==
LOC: CATHCVL 08:35
PROVIDERS: ATTEND Internal Medicine Interventional Cardiology
DX: I25.10 Atherosclerotic heart disease of native coronary artery without angina pectoris (principal); E78.5 Hyperlipidemia, unspecified; I10 Essential (primary) hypertension; I48.91 Unspecified atrial fibrillation; G47.30 Sleep apnea, unspecified; E11.9 Type 2 diabetes mellitus without complications; Z95.5 Presence of coronary angioplasty implant and graft; Z79.01 Long term (current) use of anticoagulants; Z79.82 Long term (current) use of aspirin; Z79.899 Other long term (current) drug therapy
CPT/HCPCS: 93458; 99152; C1769; C1894; J2250; J2001; J1644; J1170; Q9967

== ENCOUNTER 2024-10-12 10:43 | Emergency (ER) | payer MEDICARE, BC ==
[2024-10-12 10:50] VITALS: TEMP 97.7
--- NOTE | 2024-10-12 11:17 | ED ---
General Adult HPI - General Chief complaint: Chest Pain Stated complaint: chest pain Time Seen by Provider: 10/12/24 10:51 Source: patient Mode of arrival: wheelchair Limitations: no limitations - History of Present Illness Initial comments: Dictation was produced using [employer] dictation software. please excuse any grammatical, word or spelling errors. Chief Complaint: 58-year-old male presents with pleuritic chest pain History of Present Illness: Patient is a 58-year-old male presents emergency department pleuritic chest pain. Patient has a history of coronary artery disease. States that he has a stent in the maker that was placed [address] Kowalski. This morning at 2 AM he started to have some pleuritic chest pain. States that its sharp worse when he takes deep inspirations. Patient states the pain radiates down his left arm. Denies any sweating or nausea. The ROS documented in this emergency department record has been reviewed and confirmed by me. Those systems with pertinent positive or negative responses have been documented in the HPI. All other systems are other negative and/or noncontributory. - Related Data Home Medications Medication Instructions Recorded Confirmed ALPRAZolam [Xanax] 1 mg PO TID 01/12/14 12/31/23 DULoxetine HCL [Cymbalta] 60 mg PO BID 01/12/14 12/31/23 Omeprazole [PriLOSEC] 20 mg PO BID 01/12/14 12/31/23 Atorvastatin [Lipitor] 80 mg PO QAM 12/26/17 12/31/23 Albuterol Inhaler [Ventolin Hfa 1 puff INHALATION RT-Q4H PRN 12/12/20 12/31/23 Inhaler] HYDROcodone/APAP 5-325MG [[place]xton 1 tab PO BID PRN 12/12/20 12/26/23 5-325] Metoprolol Tartrate [Lopressor] 25 mg PO QAM 12/12/20 12/31/23 lisinopriL [Prinivil] 10 mg PO BID 12/12/20 12/31/23 Furosemide [Lasix] 40 mg PO QAM 05/23/21 12/26/23 QUEtiapine [SEROquel] 500 mg PO HS 05/23/21 12/26/23 Montelukast Sodium 10 mg PO DAILY 01/10/23 12/31/23 metFORMIN HCL 1,000 mg PO DAILY 04/18/23 12/31/23 Semaglutide [Ozempic] 2 mg SQ TH 05/29/23 12/31/23 Apixaban [Eliquis] 5 mg PO BID 12/26/23 12/31/23 Allergies Allergy/AdvReac Type Severity Reaction Status Date / Time aripiprazole [From Abilify] AdvReac shakes Verified 10/12/24 10:50 Review of Systems ROS Statement: Those systems with pertinent positive or pertinent negative responses have been documented in the HPI. ROS Other: All systems not noted in ROS Statement are negative. Past Medical History Past Medical History: Atrial Fibrillation, Asthma, Coronary Artery Disease (CAD), Chest Pain / Angina, Diabetes Mellitus, GERD/Reflux, Hyperlipidemia, Hyp ertension, Mitral Valve Prolapse (MVP), Osteoarthritis (OA), Renal Disease, Sleep Apnea/CPAP/BIPAP Additional Past Medical History / Comment(s): uses CPAP. poor renal function no need for meds as yet. SOB with activity. History of Any Multi-Drug Resistant Organisms: MRSA Date of last positivie culture/infection: (MAYBE JANUARY 2021). MDRO Source:: COCCYX Past Surgical History: Appendectomy, Back Surgery, Heart Catheterization, Heart Catheterization With Stent Additional Past Surgical History / Comment(s): cervical fusion in [place]. EPIDURAL SURGERY, CARDIOVERSION, COLONOSCOPY Past Anesthesia/Blood Transfusion Reactions: No Reported Reaction Date of Last Stent Placement:: 01/12/23 Past Psychological History: Bipolar, Panic Disorder, Schizophrenia Smoking Status: Never smoker Past Alcohol Use History: Rare Past Drug Use History: None Reported - Past Family History Mother Family Medical History: No Reported History Father Family Medical History: No Reported History General Exam - General Exam Comments Initial Comments: PHYSICAL EXAM: General Impression: Alert and oriented x3, not in acute distress HEENT: Normocephalic atraumatic, extra-ocular movements intact, pupils equal and reactive to light bilaterally, mucous membranes moist. Cardiovascular: Heart regular rate and rhythm Chest: Able to complete full sentences, no retractions, no tachypnea Abdomen: abdomen soft, non-tender, non-distended, no organomegaly Musculoskeletal: Pulses present and equal in all extremities, no peripheral edema Motor: no focal deficits noted Neurological: CN II-XII grossly intact, no focal motor or sensory deficits noted Skin: Intact with no visualized rashes Psych: Normal affect and mood Limitations: no limitations Course Vital Signs 10/12/24 10/12/24 10/12/24 10:48 11:21 11:45 Temperature 97.7 F Pulse Rate 93 93 Respiratory 20 20 20 Rate Blood Pressure 152/88 151/95 O2 Sat by Pulse 98 100 Oximetry 10/12/24 13:19 Temperature Pulse Rate 105 H Respiratory 18 Rate Blood Pressure 98/72 O2 Sat by Pulse 98 Oximetry EKG Findings - EKG Comments: EKG Findings:: My EKG interpretation: Ventricular rate 95, A-fib?, QRS 97, QTc 375. No AL prolongation, no QTC prolongation. Questionable ST elevations in inferior leads. No reciprocal changes. Will order serial EKGs. Medical Decision Making - Medical Decision Making Was pt. sent in by a medical professional or institution (, PA, TIRE TECHNICIAN, urgent c are, hospital, or custodial...) When possible be specific @ -[No] Did you speak to anyone other than the patient for history (EMS, parent, family, police, friend...)? What history was obtained from this source @ -[No] Did you review nursing and triage notes (agree or disagree)? Why? @ -[I reviewed and agree with nursing and triage notes] Were old charts reviewed (outside hosp., previous admission, EMS record, old EKG, old radiological studies, urgent care reports/EKG's, custodial records)? Report findings @ -[No old charts were reviewed] Differential Diagnosis (chest pain, altered mental status, abdominal pain women, abdominal pain men, vaginal bleeding, musculoskeletal, weakness, fever, dyspnea, syncope, headache, dizziness, GI bleed, back pain, seizure, CVA, palpatations, m ental health)? @ -Differential Chest Pain: Stable Angina, Unstable Angina, STEMI, NSTEMI Aortic Dissection, Pneumothorax, Musculoskeletal, Esophageal Spasm GERD, Cholecystitis, Pancreatitis, Zoster, this is not meant to be an all-inclusive list. EKG interpreted by me (3pts min.). @ -See above. EKG concerning for ischemia versus infarction X-rays interpreted by me (1pt min.). @ -Chest x-ray is nonacute CT interpreted by me (1pt min.). @ -[None done] U/S interpreted by me (1pt. min.). @ -[None done] What testing was considered but not performed or refused? (CT, X-rays, U/S, labs)? Why? @ -[None] What meds were considered but not given or refused? Why? @ -[None] Was smoking cessation discussed for >3mins.? @ -[No] Were there social determinants of health that impacted care today? How? (Homelessness, low income, unemployed, alcoholism, drug addiction, transportation, low edu. Level, literacy, decrease access to med. care, mcc, rehab)? @ -[No] Was there de-escalation of care discussed even if they declined (Discuss DNR or withdrawal of care, Hospice)? DNR status @ -[No] What co-morbidities impacted this encounter? (DM, HTN, Smoking, COPD, CAD, Cancer, CVA, ARF, Chemo, Hep., AIDS, mental health diagnosis, sleep apnea, morbid obesity)? @ -Coronary artery disease Was patient admitted / discharged? Hospital course, mention meds given and route, prescriptions, significant lab abnormalities, going to OR and other pertinent info. @ -58-year-old male presents to the emergency department atypical chest pain typical features. He has extensive history of cardiac issues including coronary artery disease and coronary artery stent. Complains of pleuritic chest pain. Vital signs upon arrival are within acceptable limits. EKG shows findings concerning for ischemia versus infarction. This does appear to be new EKG changes when compared to most previous EKG from 2022. Cardiology did come and evaluate the patient due to concerns of EKG changes. Cardiology did not re commend Nursing Specialist activation due to atypical nature. Laboratory evaluation obtained. Labs unremarkable. Troponins 2 times are negative. Discussed with patient that there is significant concern and that hospital admission is recommended. Patient refused states that he changes insurance and does not want to be stuck with any financial setbacks. He states that he wants to sign out AGAINST MEDICAL ADVICE. He understands that he could be experiencing a mild heart attack which could lead to significant issues. States that he will come back if he starts to get worse. Otherwise he will follow-up outpatient. Risks, Benefits, and Treatment alternatives were discussed in detail with the patient. The patient is alert and oriented X 3 and has the capacity to make an informed decision. The risks of increased morbidity including the possibly of were explained to and understood by the patient who is choosing to leave against medical advice. The patient is encouraged to return any time should they want further treatment and diagnostic investigation. Did you discuss the management of the patient with other professionals (professionals i.e. , PA, TIRE TECHNICIAN, lab, RT, psych nurse, bilingual social worker, web developer, teacher, security flex utility officer, corrections caseworker)? Give summary @ -See above Was critical care preformed (if so, how long)? @ -[No] Undiagnosed new problem with uncertain prognosis? @ -[No] Drug Therapy requiring intensive monitoring for toxicity (Heparin, Nitro, Insulin, Cardizem)? @ -[No] Were any procedures done? @ -[No] Diagnosis/symptom? Acute, or Chronic, or Acute on Chronic? Uncomplicated (without systemic symptoms) or Complicated (systemic symptoms)? @ -Chest pain Side effects of treatment? @ -[No] Exacerbation, Progression, or Severe Exacerbation? @ -[No] Poses a threat to life or bodily function? How? (Chest pain, [place], [place], pneumonia, PE, COPD, DKA, ARF, appy, cholecystitis, CVA, Diverticulitis, Homicidal, Suicidal, threat to staff... and all critical care pts) @ -yes - Lab Data Result diagrams: 10/12/24 11:09 10/12/24 11:09 Lab Results 10/12/24 10/12/24 10/12/24 Range/Units 11:09 11:09 11:09 WBC 11.4 H (3.8-10.6) k/uL RBC 4.97 (4.30-5.90) m/uL Hgb 12.9 L (13.0-17.5) gm/dL Hct 41.5 (39.0-53.0) % MCV 83.5 (80.0-100.0) fL MCH 25.8 (25.0-35.0) pg MCHC 31.0 (31.0-37.0) g/dL RDW 13.5 (11.5-15.5) % Plt Count 179 (150-450) k/uL MPV 7.3 Neutrophils % 80 % Lymphocytes % 9 % Monocytes % 8 % Eosinophils % 1 % Basophils % 0 % Neutrophils # 9.2 H (1.3-7.7) k/uL Lymphocytes # 1.0 (1.0-4.8) k/uL Monocytes # 0.9 (0-1.0) k/uL Eosinophils # 0.2 (0-0.7) k/uL Basophils # 0.0 (0-0.2) k/uL PT 10.6 (10.0-12.5) sec INR 1.0 (<1.2) APTT 24.8 (22.0-30.0) sec D-Dimer (<0.60) mg/L FEU Sodium 138 (137-145) mmol/L Potassium 4.6 (3.5-5.1) mmol/L Chloride 102 (98-107) mmol/L Carbon Dioxide 27 (22-30) mmol/L Anion Gap 9 mmol/L BUN 23 H (9-20) mg/dL Creatinine 0.95 (0.66-1.25) mg/dL Est GFR (CKD-EPI)AfAm >90 (>60 ml/min/1.73 sqM) Est GFR (CKD-EPI)NonAf 88 (>60 ml/min/1.73 sqM) Glucose 144 H (74-99) mg/dL Calcium 9.2 (8.4-10.2) mg/dL Magnesium 1.6 (1.6-2.3) mg/dL Total Bilirubin 1.0 (0.2-1.3) mg/dL AST 39 (17-59) U/L ALT 40 (4-49) U/L Alkaline Phosphatase 150 H (38-126) U/L Troponin I (0.000-0.034) ng/mL Total Protein 6.7 (6.3-8.2) g/dL Albumin 3.6 (3.5-5.0) g/dL 10/12/24 10/12/24 10/12/24 Range/Units 11:09 11:09 14:19 WBC (3.8-10.6) k/uL RBC (4.30-5.90) m/uL Hgb (13.0-17.5) gm/dL Hct (39.0-53.0) % MCV (80.0-100.0) fL MCH (25.0-35.0) pg MCHC (31.0-37.0) g/dL RDW (11.5-15.5) % Plt Count (150-450) k/uL MPV Neutrophils % % Lymphocytes % % Monocytes % % Eosinophils % % Basophils % % Neutrophils # (1.3-7.7) k/uL Lymphocytes # (1.0-4.8) k/uL Monocytes # (0-1.0) k/uL Eosinophils # (0-0.7) k/uL Basophils # (0-0.2) k/uL PT (10.0-12.5) sec INR (<1.2) APTT (22.0-30.0) sec D-Dimer 0.55 (<0.60) mg/L FEU Sodium (137-145) mmol/L Potassium (3.5-5.1) mmol/L Chloride (98-107) mmol/L Carbon Dioxide (22-30) mmol/L Anion Gap mmol/L BUN (9-20) mg/dL Creatinine (0.66-1.25) mg/dL Est GFR (CKD-EPI)AfAm (>60 ml/min/1.73 sqM) Est GFR (CKD-EPI)NonAf (>60 ml/min/1.73 sqM) Glucose (74-99) mg/dL Calcium (8.4-10.2) mg/dL Magnesium (1.6-2.3) mg/dL Total Bilirubin (0.2-1.3) mg/dL AST (17-59) U/L ALT (4-49) U/L Alkaline Phosphatase (38-126) U/L Troponin I <0.012 <0.012 (0.000-0.034) ng/mL Total Protein (6.3-8.2) g/dL Albumin (3.5-5.0) g/dL Disposition Clinical Impression: Chest pain Disposition: LEFT AGAINST MEDICAL ADVICE Condition: Fair Instructions (If sedation given, give patient instructions): Chest Pain (ED) Referrals: Kaylah Stock DO [Primary Care Provider] - 1-2 days Keanu Rubio MD [STAFF PHYSICIAN] - 1-2 days Time of Disposition: 15:23
[2024-10-12] MEDS: ASPIRIN 81 MG PO STA (11:26)
[2024-10-12] MEDS: NITROGLYCERIN SL TABS 0.4 MG TAB SUBLINGUAL STA (11:35)
[2024-10-12 11:36] LABS: Basophils % (A) 0 %; Eosinophils # (A) 0.2 k/uL (0-0.7); Eosinophils % (A) 1 %; HCT 41.5 % (39.0-53.0); HGB 12.9 gm/dL (13.0-17.5); Lymphocytes % (A) 9 %; MCH 25.8 pg (25.0-35.0); MCV 83.5 fL (80.0-100.0); Mean Platelet Volume 7.3; Monocytes # (A) 0.9 k/uL (0-1.0); Monocytes % (A) 8 %; Neutrophils # (A) 9.2 k/uL (1.3-7.7); Neutrophils % (A) 80 %; Platelet Count 179 k/uL (150-450); RBC 4.97 m/uL (4.30-5.90); RDW 13.5 % (11.5-15.5); WBC 11.4 k/uL (3.8-10.6)
[2024-10-12 11:42] LABS: ALT 40 U/L (4-49); AST 39 U/L (17-59); African American GFR (CKD) >90 (>60 ml/min/1.73 sqM); Albumin 3.6 g/dL (3.5-5.0); Alkaline Phosphatase 150 U/L (38-126); Anion Gap 9 mmol/L; Blood Urea Nitrogen 23 mg/dL (9-20); Calcium 9.2 mg/dL (8.4-10.2); Carbon Dioxide 27 mmol/L (22-30); Chloride 102 mmol/L (98-107); Glucose 144 mg/dL (74-99); Magnesium 1.6 mg/dL (1.6-2.3); Non-African American GFR(CKD) 88 (>60 ml/min/1.73 sqM); Potassium 4.6 mmol/L (3.5-5.1); Sodium 138 mmol/L (137-145); Total Protein 6.7 g/dL (6.3-8.2)
[2024-10-12 11:43] LABS: Partial Thromboplastin Time 24.8 sec (22.0-30.0); Prothrombin Time 10.6 sec (10.0-12.5)
--- NOTE | 2024-10-12 12:30 | XR ---
EXAMINATION TYPE: XR chest 2V DATE OF EXAM: 10/12/2024 12:27 PM COMPARISON: Chest radiographs from 12/12/2020 TECHNIQUE: XR chest 2V Frontal and lateral views of the chest. CLINICAL INDICATION:Male, 58 years old with history of Chest Pain; FINDINGS: Lungs/Pleura: There is no evidence of pleural effusion, focal consolidation, or pneumothorax. Pulmonary vascularity: Unremarkable. Heart/mediastinum: Cardiomediastinal silhouette is enlarged and stable. Musculoskeletal: Multiple level degenerative disc disease changes seen throughout the spine. IMPRESSION: No acute cardiopulmonary disease/process. [facility], , 10/12/2024 12:28 PM
[2024-10-12] MEDS: NITROGLYCERIN SL TABS 0.4 MG TAB SUBLINGUAL PRN (13:10)
[2024-10-12 13:20] VITALS: RESP 18
--- NOTE | 2024-10-12 14:02 | CONS ---
CONSULTATION CHIEF COMPLAINT: Chest pain. HISTORY OF PRESENT ILLNESS: Travis is a 58-year-old gentleman with history of persistent atrial fibrillation, coronary artery disease, status post angioplasty of LAD, hypertension, diabetes, dyslipidemia, and chronic musculoskeletal pain, who presented to hospital complaining of chest discomfort. He had chest pain earlier in the morning, which partially responded to the [place] that he takes. Because it did not resolve fully, he came to the ER from where I have been consulted by the ER physician. EKG in the emergency room shows atrial fibrillation with nonspecific ST-T wave changes in the inferior leads without acute ST-segment elevation. His lab showed a hemoglobin of 12.9, potassium is 4.6 creatinine is 0.9. Troponin level is normal. The patient has known CAD and his last cardiac catheterization in December of 2023, revealed patent stent within the LAD. PAST MEDICAL HISTORY: Significant for CAD, status post angioplasty, hypertension, atrial fibrillation, non- insulin-dependent diabetes. CURRENT MEDICATIONS: Include: 1. Metformin. 2. Prinivil. 3. Ozempic. 4. Seroquel. 5. Prilosec. 6. Lopressor. 7. [place]. 8. Lasix. 9. Cymbalta. 10.Lipitor. 11.Eliquis. ALLERGIES: To Abilify. FAMILY HISTORY: Significant for coronary artery disease. SOCIAL HISTORY: Negative for current smoking issues or drug abuse. REVIEW OF SYSTEMS: HEENT: Unremarkable. CARDIAC: As described above. RESPIRATORY: Negative. GI: Negative. GENITOURINARY: Negative. ALLERGY/IMMUNOLOGY: Negative. SKIN: Negative. MUSCULOSKELETAL: Significant for arthritis. PSYCHOSOCIAL: Negative. DERM: Negative. CONSTITUTIONAL: Negative. ONCOLOGICAL: Negative. OCCUPATIONAL MEDICINE PHYSICIAN: Negative. PHYSICAL EXAMINATION: GENERAL: Comfortable at rest. VITAL SIGNS: Stable. NECK: There is no jugular venous distention. Carotid upstroke is normal. There is no bruit. CHEST: Reveals good air entry bilaterally. HEART: Reveals first and second heart sounds. No gallop. No murmur. ABDOMEN: Soft. Nontender. EXTREMITIES: Did not reveal edema. Peripheral pulses are felt. ASSESSMENT: 1. Precordial chest pain, rule out myocardial infarction. 2. Coronary artery disease, status post angioplasty. 3. Persistent atrial fibrillation. PLAN: The patient's chest discomfort does not sound typical. He had a cardiac catheterization in December of last year that revealed a patent stent. We will follow serial troponins. If this comes back negative, we will obtain a 2D echo in the morning, and review his outpatient records, and if necessary, perform a dobutamine stress echo. BABAK / LISA: [id number] /
[2024-10-12] MEDS: MORPHINE SULFATE 4 MG/ML SYRINGE IVP PRN (14:39)
[2024-10-12 15:40] VITALS: BP 122/76; PULSE 86
[2024-10-13] MEDS ORDERED: ASPIRIN 325 MG TAB PO SCH (09:00)
== END 2024-10-12 15:40 | disposition left against medical advice (07) ==
LOC: EC 10:43
DX: R07.89 Other chest pain (principal); I25.10 Atherosclerotic heart disease of native coronary artery without angina pectoris; Z53.29 Procedure and treatment not carried out because of patient's decision for other reasons; Z88.8 Allergy status to other drugs, medicaments and biological substances
CPT/HCPCS: 99285; 96374; 36415; 93005; 85379; 80053; 83735; 84484; 85025; 85610; 85730; 71046; J2270

== ENCOUNTER 2024-10-17 01:11 | Observation (INO) | payer BC, MEDICARE ==
[2024-10-17] MEDS: ALPRAZolam 1 MG TAB PO STA (01:32)
[2024-10-17 01:38] LABS: Basophils % (A) 0 %; Eosinophils # (A) 0.3 k/uL (0-0.7); Eosinophils % (A) 2 %; HCT 38.9 % (39.0-53.0); HGB 12.7 gm/dL (13.0-17.5); Lymphocytes # (A) 1.3 k/uL (1.0-4.8); Lymphocytes % (A) 9 %; MCH 26.7 pg (25.0-35.0); MCHC 32.6 g/dL (31.0-37.0); Mean Platelet Volume 7.1; Monocytes % (A) 7 %; Neutrophils # (A) 11.3 k/uL (1.3-7.7); Neutrophils % (A) 80 %; Platelet Count 249 k/uL (150-450); RBC 4.74 m/uL (4.30-5.90); RDW 13.5 % (11.5-15.5); WBC 14.1 k/uL (3.8-10.6)
[2024-10-17 01:42] LABS: ALT 58 U/L (4-49); AST 36 U/L (17-59); African American GFR (CKD) >90 (>60 ml/min/1.73 sqM); Albumin 3.6 g/dL (3.5-5.0); Alkaline Phosphatase 138 U/L (38-126); Anion Gap 7 mmol/L; Blood Urea Nitrogen 25 mg/dL (9-20); Calcium 9.4 mg/dL (8.4-10.2); Carbon Dioxide 26 mmol/L (22-30); Chloride 103 mmol/L (98-107); Glucose 141 mg/dL (74-99); Magnesium 1.8 mg/dL (1.6-2.3); Non-African American GFR(CKD) 78 (>60 ml/min/1.73 sqM); Potassium 4.1 mmol/L (3.5-5.1); Sodium 136 mmol/L (137-145); Total Protein 6.8 g/dL (6.3-8.2)
[2024-10-17 01:54] LABS: Partial Thromboplastin Time 22.2 sec (22.0-30.0); Prothrombin Time 10.9 sec (10.0-12.5)
[2024-10-17] MEDS: MORPHINE SULFATE 4 MG/ML SYRINGE IVP STA (02:04)
--- NOTE | 2024-10-17 02:52 | XR ---
EXAM: XR Chest, 1 View CLINICAL HISTORY: dysrhythmia TECHNIQUE: Frontal view of the chest. COMPARISON: 12/12/2020 FINDINGS: Apical lordotic view. Heart is normal size. Hypoventilation with mild bibasilar atelectasis. No CHF or definite infiltrate. No pleural effusion or pneumothorax. Bones are unremarkable. IMPRESSION: Hypoventilation with bibasilar atelectasis.
[2024-10-17] MEDS: METOPROLOL TARTRATE 5 MG/5 ML VIAL IVP STA (03:01)
[2024-10-17] MEDS ORDERED: NITROGLYCERIN SL TABS 0.4 MG TAB SUBLINGUAL PRN (03:26)
[2024-10-17] MEDS ORDERED: ALBUTEROL NEBULIZED 2.5 MG/3 ML INHALATION PRN (03:29)
--- NOTE | 2024-10-17 05:00 | ED ---
Chest Pain HPI - General Chief Complaint: Arrhythmia/Palpitations Stated Complaint: Chest Pain Time Seen by Provider: 10/17/24 01:15 Source: patient, EMS Mode of arrival: EMS Limitations: no limitations - History of Present Illness Initial Comments: This patient is 58-year-old man arriving here as transfer from [facility]. The patient had gone there to have evaluation of chest pain. He does have history of previous stenting approximately 2 years ago. Patient also has history of diabetes, atrial fibrillation, hypertension. Patient states that he had pain when he was driving home he indicates the pain in the substernal chest area. Pain is a pressure sensation. Does radiate to the left shoulder. Patient had some associated dyspnea. He had been in the hospital here to be seen for similar chest pains on Sunday and he declined to be admitted at [facility] AM. At the other hospital, the patient was felt to be having some possible ventricular arrhythmia and had been given amiodarone IV. MD Complaint: chest pain -: hour(s) Onset: during rest Pain Location: substernal Pain Radiation: LUE Severity: moderate Quality: heaviness Consistency: constant Improves With: nothing Worsens With: nothing Anginal Symptoms: dyspnea Treatments Prior to Arrival: other (Amiodarone) - Related Data Home Medications Medication Instructions Recorded Confirmed ALPRAZolam [Xanax] 1 - 2 mg PO TID PRN 01/12/14 10/17/24 DULoxetine HCL [Cymbalta] 60 mg PO BID 01/12/14 10/17/24 Omeprazole [PriLOSEC] 20 mg PO BID 01/12/14 10/17/24 Atorvastatin [Lipitor] 80 mg PO QAM 12/26/17 10/17/24 Albuterol Inhaler [Ventolin Hfa 1 puff INHALATION RT-Q4H PRN 12/12/20 10/17/24 Inhaler] lisinopriL [Prinivil] 20 mg PO DAILY 12/12/20 10/17/24 Furosemide [Lasix] 40 mg PO QAM 05/23/21 10/17/24 QUEtiapine [SEROquel] 200 mg PO HS 05/23/21 10/17/24 Montelukast Sodium 10 mg PO DAILY 01/10/23 10/17/24 Apixaban [Eliquis] 5 mg PO BID 12/26/23 10/17/24 Aspirin EC [Ecotrin Low Dose] 81 mg PO DAILY 10/17/24 10/17/24 HYDROcodone/APAP 7.5-325MG [[place] 1 tab PO Q12H PRN 10/17/24 10/17/24 7.5-325] Multivit-Min/FA/Lycopen/Lutein 1 tab PO DAILY 10/17/24 10/17/24 [Centrum Silver Tablet] QUEtiapine [SEROquel] 400 mg PO HS 10/17/24 10/17/24 Tirzepatide [Mounjaro] 15 mg SQ TH 10/17/24 10/17/24 tadalafiL [Cialis] 20 mg PO DAILY 10/17/24 10/17/24 Previous Rx's Medication Instructions Recorded Colchicine [Colcrys] 0.6 mg PO BID #60 each 10/18/24 Metoprolol Succinate (ER) [Toprol 50 mg PO DAILY #30 tab 10/18/24 XL] Allergies Allergy/AdvReac Type Severity Reaction Status Date / Time aripiprazole [From Abilify] AdvReac shakes Verified 10/17/24 09:01 Review of Systems ROS Statement: Those systems with pertinent positive or pertinent negative responses have been documented in the HPI. ROS Other: All systems not noted in ROS Statement are negative. Constitutional: Denies: fever, chills ENT: Denies: throat pain Respiratory: Reports: dyspnea. Denies: cough Cardiovascular: Reports: chest pain. Denies: palpitations, orthopnea, edema, syncope Gastrointestinal: Denies: abdominal pain, nausea, vomiting, diarrhea Genitourinary: Denies: dysuria, hematuria Musculoskeletal: Denies: back pain Skin: Denies: rash Neurological: Denies: headache, weakness, numbness EKG Findings - EKG Comments: EKG Findings:: Possible pulmonary disease pattern - EKG Results: EKG: interpreted by ERMD EKG shows: tachycardia (Rate 109 bpm), atrial fibrillation Past Medical History Past Medical History: Atrial Fibrillation, Asthma, Coronary Artery Disease (CAD), Chest Pain / Angina, Diabetes Mellitus, GERD/Reflux, Hyperlipidemia, Hypertension, Mitral Valve Prolapse (MVP), Osteoarthritis (OA), Renal Disease, Sleep Apnea/CPAP/BIPAP Additional Past Medical History / Comment(s): uses CPAP. poor renal function no need for meds as yet. SOB with activity. History of Any Multi-Drug Resistant Organisms: MRSA Date of last positivie culture/infection: (MAYBE JANUARY 2021). MDRO Source:: COCCYX Past Surgical History: Appendectomy, Back Surgery, Heart Catheterization, Heart Catheterization With Stent Additional Past Surgical History / Comment(s): cervical fusion in [place]. EPIDURAL SURGERY, CARDIOVERSION, COLONOSCOPY Past Anesthesia/Blood Transfusion Reactions: No Reported Reaction Date of Last Stent Placement:: 01/12/23 Past Psychological History: Bipolar, Panic Disorder, Schizophrenia Smoking Status: Never smoker Past Alcohol Use History: Rare Past Drug Use History: None Reported - Past Family History Mother Family Medical History: No Reported History Father Family Medical History: No Reported History General Exam Limitations: no limitations General appearance: alert, in no apparent distress Head exam: Present: atraumatic, normocephalic Eye exam: Present: normal appearance. Absent: scleral icterus, conjunctival injection ENT exam: Present: normal oropharynx Neck exam: Present: normal inspection Respiratory exam: Present: normal lung sounds bilaterally. Absent: respiratory distress, wheezes, rales, rhonchi, stridor, accessory muscle use Cardiovascular Exam: Present: tachycardia (Rate approximately 104 bpm), irregular rhythm, systolic murmur. Absent: diastolic murmur, rubs, gallop GI/Abdominal exam: Present: soft. Absent: distended, tenderness, guarding, rebound, rigid, mass Extremities exam: Present: normal inspection, normal capillary refill. Absent: pedal edema, calf tenderness Back exam: Present: normal inspection. Absent: CVA tenderness (R), CVA tenderness (L) Neurological exam: Present: alert Skin exam: Present: warm, dry, intact, normal color. Absent: rash Course Vital Signs 10/17/24 10/17/24 10/17/24 01:12 01:19 03:00 Temperature 98.2 F Pulse Rate 109 H 107 H 115 H Respiratory 18 18 18 Rate Blood Pressure 117/67 113/92 O2 Sat by Pulse 98 98 99 Oximetry 10/17/24 10/17/24 10/17/24 03:15 04:00 07:10 Temperature Pulse Rate 98 101 H 113 H Respiratory 20 18 Rate Blood Pressure 108/78 131/85 O2 Sat by Pulse 93 L 94 L Oximetry 10/17/24 10/17/2410/17/25 08:18 11:07 13:11 Temperature Pulse Rate 115 H 103 H 98 Respiratory 20 18 18 Rate Blood Pressure 117/79 129/64 106/74 O2 Sat by Pulse 96 97 98 Oximetry 10/17/24 15:19 Temperature 98.3 F Pulse Rate 105 H Respiratory 18 Rate Blood Pressure 106/65 O2 Sat by Pulse 95 Oximetry Chest Pain MDM - MDM Was pt. sent in by a medical professional or institution (, PA, BUTTONHOLE MACHINE OPERATOR, urgent care, hospital, or fdc...) When possible be specific @ -[Yes the patient is transferred here from outside hospital to have further cardiology evaluation Did you speak to anyone other than the patient for history (EMS, parent, family, police, friend...)? What history was obtained from this source @ -[Verbal report was taken from the other hospital Did you review nursing and triage notes (agree or disagree)? Why? @ -[I reviewed and agree with nursing and triage notes] Were old charts reviewed (outside hosp., previous admission, EMS record, old EKG, old radiological studies, urgent care reports/EKG's, fdc records)? Report findings @ -[Yes, old charts were reviewed] Differential Diagnosis (chest pain, altered mental status, abdominal pain women, abdominal pain men, vaginal bleeding, weakness, fever, dyspnea, syncope, headache, dizziness, GI bleed, back pain, seizure, CVA, palpatations, mental health, musculoskeletal)? @ -[Differential Chest Pain: Stable Angina, Unstable Angina, STEMI, NSTEMI Aortic Dissection, Pneumothorax, Musculoskeletal, Esophageal Spasm GERD, Cholecystitis, Pancreatitis, Zoster, this is not meant to be an all-inclusive list. EKG interpreted by me (3pts min.). @ -[I interpreted as above] X-rays interpreted by me (1pt min.). @ -[None done] CT interpreted by me (1pt min.). @ -[None done] U/S interpreted by me (1pt. min.). @ -[None done] What testing was considered but not performed or refused? (CT, X-rays, U/S, labs)? Why? @ -[None] What meds were considered but not given or refused? Why? @ -[None] Did you discuss the management of the patient with other professionals (professionals i.e. , PA, BUTTONHOLE MACHINE OPERATOR, lab, RT, psych nurse, social insurance analyst, park guard, teacher, security officer, major case detective)? Give summary @ -[Case discussed with admitting physician and treatment recommendations incorporated Was smoking cessation discussed for >3mins.? @ -[No] Was critical care preformed (if so, how long)? @ -[, 35 minutes Were there social determinants of health that impacted care today? How? (Homelessness, low income, unemployed, alcoholism, drug addiction, transportation, low edu. Level, literacy, decrease access to med. care, group home, rehab)? @ -[No] Was there de-escalation of care discussed even if they declined (Discuss DNR or withdrawal of care, Hospice)? DNR status @ -[No] What co-morbidities impacted this encounter? (DM, HTN, Smoking, COPD, CAD, Cancer, CVA, ARF, Chemo, Hep., AIDS, mental health diagnosis, sleep apnea, morbid obesity)? @ -Atrial fibrillation, hypertension Was patient admitted / discharged? Hospital course, mention meds given and route, prescriptions, significant lab abnormalities, going to OR and other pertinent info. @ -[Patient is 58-year-old man transferred here to have further evaluation from chest pain after he had left AGAINST MEDICAL ADVICE from this facility days ago. The patient found to be in atrial fibrillation with rapid ventricular rate he had been started on amiodarone. The other facility felt he may have had ventricular dysrhythmia, no evidence of this at admission here. Undiagnosed new problem with uncertain prognosis? @ -[No] Drug Therapy requiring intensive monitoring for toxicity (Heparin, Nitro, Insulin, Cardizem)? @ -[No] Were any procedures done? @ -[No] Diagnosis/symptom? @ -[Acute chest pain Atrial fibrillation with rapid ventricular rate Acute, or Chronic, or Acute on Chronic? @ -[Acute on chronic Uncomplicated (without systemic symptoms) or Complicated (systemic symptoms)? @ -[Uncomplicated Side effects of treatment? @ -[No] Exacerbation, Progression, or Severe Exacerbation? @ -[No] Poses a threat to life or bodily function? How? (Chest pain, [place], CA, pneumonia, PE, COPD, DKA, ARF, appy, cholecystitis, CVA, Diverticulitis, Homicidal, Suicidal, threat to staff... and all critical care pts) @ -[There is risk, requiring cardiology consultation, serial troponin, telemetry monitoring All treatments are based on ideal body weight as in ED triage Disposition Clinical Impression: Chest pain, Atrial fibrillation with RVR Disposition: ADMITTED IP TO THIS HOSP Condition: Stable Is patient prescribed a controlled substance at d/c from ED?: No
[2024-10-17] MEDS: HYDROcodone/APAP 5-325MG 1 EACH TAB PO PRN (05:41)
[2024-10-17] MEDS: lisinopriL 10 MG TAB PO SCH (08:19)
[2024-10-17] MEDS: metFORMIN 500 MG TAB PO SCH (08:19)
[2024-10-17] MEDS: MONTELUKAST 10 MG TAB PO SCH (08:19)
[2024-10-17] MEDS: APIXABAN 5 MG TAB PO SCH (08:20)
[2024-10-17] MEDS: PANTOPRAZOLE 40 MG TABLET PO SCH (08:20)
[2024-10-17] MEDS: ATORVASTATIN 80 MG TAB PO SCH (08:20)
[2024-10-17] MEDS: METOPROLOL TARTRATE 25 MG TAB PO SCH (08:20)
[2024-10-17] MEDS: FUROSEMIDE 40 MG TAB PO SCH (08:20)
[2024-10-17] MEDS: ALPRAZolam 1 MG TAB PO SCH (08:20)
[2024-10-17] MEDS: DULoxetine HCL 60 MG CAPSULE.DR PO SCH (08:20)
--- NOTE | 2024-10-17 11:56 | P.CRDCN ---
History of Present Illness History of present illness: HISTORY OF PRESENT ILLNESS: This is a 58-year-old male with a past medical history significant for persistent atrial fibrillation, hypertension, hyperlipidemia, diabetes, CAD with previous stenting, and obesity. Patient follows in the office with Dr. Lopez. We have been asked to see the patient in consultation for chest pain. Patient examined at the bedside in the emergency room. Patient presented to hospital with a chief complaint of chest discomfort. Patient states that he feels like somebody is kicking him in the chest. He states he only has the pain with deep inspiration. He denies any radiation of the pain. Denies any shortness of breath. The pain is not worse with exertion or movement. He does have some discomfort with left chest wall palpation. Denies any palpitations. Patient does report he took 3 nitro at home with no relief. DIAGNOSTICS: - EKG reveals atrial fibrillation with PVCs - Chest xray hypoventilation with bibasilar atelectasis. - Laboratory data: WBC 14.1. Hemoglobin 12.7. Platelet count 249. Sodium 136. Potassium 4.1. BUN 25. Creatinine 1.05. Magnesium 1.8. Troponin negative x 3. - Current home cardiac medications include lisinopril 20 mg daily, Toprol tartrate 25 mg daily, Lasix 40 mg daily, Lipitor 80 mg daily, aspirin 81 mg miri ly, Eliquis 5 mg twice a day. - Most recent echocardiogram obtained in November 2022 revealed normal EF, aortic sclerosis, dilated aorta at 3.9 cm - Cardiac catheterization history: December 2023 revealing patent stent in the LAD. Mildly elevated left-sided filling pressures. Medical management was recomme nded. REVIEW OF SYSTEMS: At the time of my exam: CONSTITUTIONAL: Denies fever or chills. HEENT: Denies blurred vision, vision changes, or eye pain. Denies hemoptysis CARDIOVASCULAR: Denies chest pain. Denies orthopnea. Denies PND. Denies palpitations RESPIRATORY: Denies shortness of breath. GASTROINTESTINAL: Denies abdominal pain. Denies nausea or vomiting. HEMATOLOGIC: Denies bleeding disorders. GENITOURINARY: Denies any blood in urine. SKIN: Denies pruitis. Denies rash. PHYSICAL EXAM: VITAL SIGNS: Reviewed. GENERAL: Well-developed in no acute distress. HEENT: Head is normocephalic. Pupils are equal, round. Sclerae anicteric. Mucous membranes of the mouth are moist. Neck supple. No JVD or thyromegaly LUNGS: Respirations even and unlabored. Lungs essentially clear to auscultation bilaterally. HEART: Regular rate and rhythm. S1 and S2 heard. ABDOMEN: Soft. Nondistended. Nontender. EXTREMITIES: Normal range of motion. No clubbing or cyanosis. Peripheral pulses intact. No lower extremity edema NEUROLOGIC: Awake and alert. Oriented x 3. ASSESSMENT: Chest pain, reproducible with deep inspiration, troponin negative x 3 Coronary artery disease with previous stenting of the LAD Longstanding persistent atrial fibrillation Frequent PVCs Hypertension Hyperlipidemia Diabetes Obesity: BMI 37.3 PLAN: An acute coronary event has been ruled out. Patient's pain is reproducible with deep inspiration. Obtain 2D echo to assess cardiac structure and function Resume home cardiac medications Further recommendations pending patient course. Nurse practitioner note has been reviewed by physician. Signing provider agrees with the documented findings, assessment, and plan of care documented by BUSINESS ATTORNEY as a scribe. Past Medical History Past Medical History: Atrial Fibrillation, Asthma, Coronary Artery Disease (CAD), Chest Pain / Angina, Diabetes Mellitus, GERD/Reflux, Hyperlipidemia, Hypertension, Mitral Valve Prolapse (MVP), Osteoarthritis (OA), Renal Disease, Sleep Apnea/CPAP/BIPAP Additional Past Medical History / Comment(s): uses CPAP. poor renal function no need for meds as yet. SOB with activity. History of Any Multi-Drug Resistant Organisms: MRSA Date of last positivie culture/infection: (MAYBE JANUARY 2021). MDRO Source:: COCCYX Past Surgical History: Appendectomy, Back Surgery, Heart Catheterization, Heart Catheterization With Stent Additional Past Surgical History / Comment(s): cervical fusion in [place]. EPIDURAL SURGERY, CARDIOVERSION, COLONOSCOPY Past Anesthesia/Blood Transfusion Reactions: No Reported Reaction Date of Last Stent Placement:: 01/12/23 Past Psychological History: Bipolar, Panic Disorder, Schizophrenia Smoking Status: Never smoker Past Alcohol Use History: Rare Past Drug Use History: None Reported - Past Family History Mother Family Medical History: No Reported History Father Family Medical History: No Reported History Medications and Allergies Home Medications Medication Instructions Recorded Confirmed Type ALPRAZolam [Xanax] 1 - 2 mg PO TID PRN 01/12/14 10/17/24 History DULoxetine HCL [Cymbalta] 60 mg PO BID 01/12/14 10/17/24 History Omeprazole [PriLOSEC] 20 mg PO BID 01/12/14 10/17/24 History Atorvastatin [Lipitor] 80 mg PO QAM 12/26/17 10/17/24 History Albuterol Inhaler [Ventolin Hfa 1 puff INHALATION RT-Q4H PRN 12/12/20 10/17/24 History Inhaler] Metoprolol Tartrate [Lopressor] 25 mg PO QAM 12/12/20 10/17/24 History lisinopriL [Prinivil] 20 mg PO DAILY 12/12/20 10/17/24 History Furosemide [Lasix] 40 mg PO QAM 05/23/21 10/17/24 History QUEtiapine [SEROquel] 200 mg PO HS 05/23/21 10/17/24 History Montelukast Sodium 10 mg PO DAILY 01/10/23 10/17/24 History Apixaban [Eliquis] 5 mg PO BID 12/26/23 10/17/24 History Aspirin EC [Ecotrin Low Dose] 81 mg PO DAILY 10/17/24 10/17/24 History HYDROcodone/APAP 7.5-325MG [[place] 1 tab PO Q12H PRN 10/17/24 10/17/24 History 7.5-325] Multivit-Min/FA/Lycopen/Lutein 1 tab PO DAILY 10/17/24 10/17/24 History [Centrum Silver Tablet] QUEtiapine [SEROquel] 400 mg PO HS 10/17/24 10/17/24 History Tirzepatide [Mounjaro] 15 mg SQ TH 10/17/24 10/17/24 History tadalafiL [Cialis] 20 mg PO DAILY 10/17/24 10/17/24 History Allergies Allergy/AdvReac Type Severity Reaction Status Date / Time aripiprazole [From [facility]] AdvReac shakes Verified 10/17/24 09:01 Physical Exam Vitals: Vital Signs Temp Pulse Resp BP Pulse Ox 10/17/24 11:07 103 H 18 129/64 97 10/17/24 08:18 115 H 20 117/79 96 10/17/24 07:10 113 H 18 131/85 94 L 10/17/24 04:00 101 H 20 108/78 93 L 10/17/24 03:15 98 10/17/24 03:00 115 H 18 113/92 99 10/17/24 01:19 107 H 18 98 10/17/24 01:12 98.2 F 109 H 18 117/67 98 Intake and Output 10/16/24 10/17/24 10/17/24 22:59 06:59 14:59 Other: Weight 117.934 kg Results 10/17/24 01:19 10/17/24 01:19 Cardiac Enzymes 10/17/24 10/17/24 10/17/24 Range/Units 01:19 01:19 03:53 AST 36 (17-59) U/L Troponin I <0.012 <0.012 (0.000-0.034) ng/mL 10/17/24 Range/Units 06:53 AST (17-59) U/L Troponin I <0.012 (0.000-0.034) ng/mL Coagulation 10/17/24 Range/Units 01:19 PT 10.9 (10.0-12.5) sec APTT 22.2 (22.0-30.0) sec CBC 10/17/24 Range/Units 01:19 WBC 14.1 H (3.8-10.6) k/uL RBC 4.74 (4.30-5.90) m/uL Hgb 12.7 L (13.0-17.5) gm/dL Hct 38.9 L (39.0-53.0) % Plt Count 249 (150-450) k/uL Comprehensive Metabolic Panel 10/17/24 Range/Units 01:19 Sodium 136 L (137-145) mmol/L Potassium 4.1 (3.5-5.1) mmol/L Chloride 103 (98-107) mmol/L Carbon Dioxide 26 (22-30) mmol/L BUN 25 H (9-20) mg/dL Creatinine 1.05 (0.66-1.25) mg/dL Glucose 141 H (74-99) mg/dL Calcium 9.4 (8.4-10.2) mg/dL AST 36 (17-59) U/L ALT 58 H (4-49) U/L Alkaline Phosphatase 138 H (38-126) U/L Total Protein 6.8 (6.3-8.2) g/dL Albumin 3.6 (3.5-5.0) g/dL Current Medications Generic Name Dose Route Start Last Admin Trade Name Freq PRN Reason Stop Dose Admin Hydrocodone Bitart/Acetaminophen 1 each 10/17/24 03:29 10/17/24 05:41 Hydrocodone/Apap 5-325mg 1 Each Tab PO 1 each BID PRN Administration Pain Albuterol Sulfate 2.5 mg 10/17/24 03:29 Albuterol Nebulized 2.5 Mg/3 Ml INHALATION RT-Q4H PRN Shortness Of Breath Alprazolam 1 mg 10/17/24 09:00 10/17/24 08:20 Alprazolam 1 Mg Tab PO 1 mg TID ANUSHKA Administration Apixaban 5 mg 10/17/24 09:00 10/17/24 08:20 Apixaban 5 Mg Tab PO 5 mg BID ANUSHKA Administration Protocol Aspirin 325 mg 10/18/24 09:00 Aspirin 325 Mg Tab PO DAILY ANUSHKA Atorvastatin Calcium 80 mg 10/17/24 09:00 10/17/24 08:20 Atorvastatin 80 Mg Tab PO 80 mg QAM ANUSHKA Administration Duloxetine HCl 60 mg 10/17/24 09:00 10/17/24 08:20 Duloxetine Hcl 60 Mg Capsule.Dr PO 60 mg BID ANUSHKA Administration Furosemide 40 mg 10/17/24 09:00 10/17/24 08:20 Furosemide 40 Mg Tab PO 40 mg QAM ANUSHKA Administration Lisinopril 10 mg 10/17/24 09:00 10/17/24 08:19 Lisinopril 10 Mg Tab PO 10 mg BID ANUSHKA Administration Metoprolol Succinate 25 mg 10/17/24 09:00 Metoprolol Succinate (Er) 25 Mg Tab.Er.24h PO DAILY [facility] Montelukast Sodium 10 mg 10/17/24 09:00 10/17/24 08:19 Montelukast 10 Mg Tab PO 10 mg DAILY ANUSHKA Administration Nitroglycerin 0.4 mg 10/17/24 03:26 Nitroglycerin Sl Tabs 0.4 Mg Tab SUBLINGUAL Q5M PRN Chest Pain Pantoprazole Sodium 40 mg 10/17/24 07:30 10/17/24 08:20 Pantoprazole 40 Mg Tablet PO 40 mg [id number] ANUSHKA Administration Quetiapine Fumarate 400 mg 10/17/24 21:00 Quetiapine 400 Mg Tab PO HS ANUSHKA Quetiapine Fumarate 100 mg 10/17/24 21:00 Quetiapine 100 Mg Tab PO HS ANUSHKA Intake and Output 10/16/24 10/17/24 10/17/24 22:59 06:59 14:59 Other: Weight 117.934 kg 10/17/24 01:19 10/17/24 01:19
[2024-10-17] MEDS: METOPROLOL SUCCINATE (ER) 25 MG TAB.ER.24H PO SCH (11:58)
--- NOTE | 2024-10-17 13:43 | P.HPIM ---
History of Present Illness H&P Date: 10/17/24 Chief Complaint: chest pain Patient is a 58-year-old male with a history of CAD status post LAD stent in 2023, A-fib on anticoagulation, hyperlipidemia, hypertension, asthma, anxiety, depression obstructive sleep apnea on CPAP presented to the ER with a complaint of left-sided sharp chest pain in the afternoon yesterday while he was driving home. Patient visited [facility] and was transferred to the [facility] for further evaluation for concerns regarding ACS. Patient had a similar episode of chest pain on Sunday and came to the [facility] but left AMA. Patient reports that his chest pain is constant associated with mild shortness of breath which is worse with breathing and movements such as leaning forward. He had a upper respiratory tract infection 1 month ago which took him about 3 weeks to recover from. Otherwise, patient denies any orthopnea, PND, swelling of legs. No recent travel. Patient is a lifetime non-smoker and drinker and denies use of illicit drugs. At the time of the interview patient reports that this is pain is still there but has subsided and is currently 4/10. Initial laboratory work in the ER Shows WBC 4.1, hemoglobin 12.7, sodium 136, BUN 25, creatinine 1.05, glucose 141, ALT 50, ALP 138, troponin < 0.012 (subsequent troponin I are < 0.012) EKG in the ER shows atrial fibrillation with PVCs Chest x-ray shows hypoventilation with bibasilar atelectasis Vital signs on arrival shows temperature 98.2 F, pulse rate 109, respiratory 18, blood pressure 170/67, oxygen saturation 98% room air Review of systems: Pertinent positives and negatives as discussed in HPI, a complete review of systems was performed and all other systems are negative. Social history: As in HPI as above Physical examination: Vital signs reviewed General: non toxic, no distress, appears at stated age, obese Derm: no unusual rashes/lesions, warm Head: atraumatic, normocephalic, symmetric Eyes: EOMI, no lid lag, anicteric sclera, pupils equal round reactive to light ENT: Nose and ears atraumatic Neck: No cervical lymphadenopathy, trachea midline, supple Mouth: no lip lesion, mucus membranes moist Cardiovascular: S1S2 reg, no murmur, positive dorsalis pedis pulse bilateral, no edema Lungs: CTA bilateral, no rhonchi, no rales, no accessory muscle use Abdominal: soft, nontender to palpation, no guarding Ext: muscle strength 5 out of 5 in all 4 extremities grossly, no gross muscle atrophy, no contractures, Neuro: CN II-XI grossly intact, no gross focal neuro deficits Psych: Alert, oriented, appropriate affect Assessment/Plan: This is a Patient is a 58-year-old male with a history of CAD status post LAD stent in 2023, A-fib on anticoagulation, hyperlipidemia, hypertension, asthma, obstructive sleep apnea on CPAP presented to the ER with a complaint of left- sided sharp chest pain in the afternoon yesterday while he was driving home. Patient visited [facility] and was transferred to the [facility] for further evaluation for concerns regarding ACS. . Case was discussed with the Emergency Room provider and decision was made to admit the patient for chest pain, rule out ACS Labs and images: Initial laboratory work in the ER Shows WBC 4.1, hemoglobin 12.7, sodium 136, BUN 25, creatinine 1.05, glucose 141, ALT 50, ALP 138, troponin < 0.012 (subsequent troponin I are < 0.012) EKG in the ER shows atrial fibrillation with PVCs Chest x-ray shows hypoventilation with bibasilar atelectasis Vital signs on arrival shows temperature 98.2 F, pulse rate 109, respiratory 18, blood pressure 170/67, oxygen saturation 98% room air Active: #Chest pain, rule out ACS #Chronic A-fib the RVR Aspirin 81 mg p.o. daily, Lipitor 80 mg p.o. daily, Toprol-XL 25 mg p.o. daily Oxygen as needed Morphine as needed Consult cardiology Order echocardiogram Order lipid panel Cardiac telemetry Continue with Eliquis 5 mg p.o. twice daily Order D-dimer #Hyperglycemia Accu-Chek and insulin scale #Transaminases #Elevated ALP Continue monitor CMP Chronic: Hyperlipidemia, hypertension, sleep apnea, asthma, anxiety and depression - Resume home medication DVT prophylaxis: Eliquis 5 mg p.o. twice daily GI prophylaxis: Protonix 40 mg p.o. daily F: None E: Replete as needed N: Heart healthy diet A: Ambulatory at baseline The patient is admitted with an anticipated less than than 2 midnight stay for evaluation of chest pain, rule out ACS CODE STATUS: Full code Discussed with: Patient Anticipated discharge place: Pending clinical course Dictation was produced using [employer] dictation software. Please excuse any grammatical, word or spelling errors. Attestation I have seen and examined this patient with my resident , discussed the same with the resident/JUANA, and agree with the dictator's assessment and plan as written Dr. Mina marques Past Medical History Past Medical History: Atrial Fibrillation, Asthma, Coronary Artery Disease (CAD), Chest Pain / Angina, Diabetes Mellitus, GERD/Reflux, Hyperlipidemia, Hypertension, Mitral Valve Prolapse (MVP), Osteoarthritis (OA), Renal Disease, Sleep Apnea/CPAP/BIPAP Additional Past Medical History / Comment(s): uses CPAP. poor renal function no need for meds as yet. SOB with activity. History of Any Multi-Drug Resistant Organisms: MRSA Date of last positivie culture/infection: (MAYBE JANUARY 2021). MDRO Source:: COCCYX Past Surgical History: Appendectomy, Back Surgery, Heart Catheterization, Heart Catheterization With Stent Additional Past Surgical History / Comment(s): cervical fusion in [place]. EPIDURAL SURGERY, CARDIOVERSION, COLONOSCOPY Past Anesthesia/Blood Transfusion Reactions: No Reported Reaction Date of Last Stent Placement:: 01/12/23 Past Psychological History: Bipolar, Panic Disorder, Schizophrenia Smoking Status: Never smoker Past Alcohol Use History: Rare Past Drug Use History: None Reported - Past Family History Mother Family Medical History: No Reported History Father Family Medical History: No Reported History Medications and Allergies Home Medications Medication Instructions Recorded Confirmed Type ALPRAZolam [Xanax] 1 - 2 mg PO TID PRN 01/12/14 10/17/24 History DULoxetine HCL [Cymbalta] 60 mg PO BID 01/12/14 10/17/24 History Omeprazole [PriLOSEC] 20 mg PO BID 01/12/14 10/17/24 History Atorvastatin [Lipitor] 80 mg PO QAM 12/26/17 10/17/24 History Albuterol Inhaler [Ventolin Hfa 1 puff INHALATION RT-Q4H PRN 12/12/20 10/17/24 History Inhaler] lisinopriL [Prinivil] 20 mg PO DAILY 12/12/20 10/17/24 History Furosemide [Lasix] 40 mg PO QAM 05/23/21 10/17/24 History QUEtiapine [SEROquel] 200 mg PO HS 05/23/21 10/17/24 History Montelukast Sodium 10 mg PO DAILY 01/10/23 10/17/24 History Apixaban [Eliquis] 5 mg PO BID 12/26/23 10/17/24 History Aspirin EC [Ecotrin Low Dose] 81 mg PO DAILY 10/17/24 10/17/24 History HYDROcodone/APAP 7.5-325MG [[place] 1 tab PO Q12H PRN 10/17/24 10/17/24 History 7.5-325] Multivit-Min/FA/Lycopen/Lutein 1 tab PO DAILY 10/17/24 10/17/24 History [Centrum Silver Tablet] QUEtiapine [SEROquel] 400 mg PO HS 10/17/24 10/17/24 History Tirzepatide [Mounjaro] 15 mg SQ TH 10/17/24 10/17/24 History tadalafiL [Cialis] 20 mg PO DAILY 10/17/24 10/17/24 History Colchicine [Colcrys] 0.6 mg PO BID #60 each 10/18/24 Rx Metoprolol Succinate (ER) [Toprol 50 mg PO DAILY #30 tab 10/18/24 Rx XL] Allergies Allergy/AdvReac Type Severity Reaction Status Date / Time aripiprazole [From [facility]] AdvReac shakes Verified 10/17/24 09:01 Physical Exam Vitals: Vital Signs Temp Pulse Resp BP Pulse Ox 10/17/24 11:07 103 H 18 129/64 97 10/17/24 08:18 115 H 20 117/79 96 10/17/24 07:10 113 H 18 131/85 94 L 10/17/24 04:00 101 H 20 108/78 93 L 10/17/24 03:15 98 10/17/24 03:00 115 H 18 113/92 99 10/17/24 01:19 107 H 18 98 10/17/24 01:12 98.2 F 109 H 18 117/67 98 Intake and Output 10/16/24 10/17/24 10/17/24 22:59 06:59 14:59 Other: Weight 117.934 kg Results CBC & Chem 7: 10/18/24 04:27 10/18/24 04:27 Labs: Abnormal Lab Results - Last 24 Hours (Table) 10/17/24 10/17/24 Range/Units 01:19 01:19 WBC 14.1 H (3.8-10.6) k/uL Hgb 12.7 L (13.0-17.5) gm/dL Hct 38.9 L (39.0-53.0) % Neutrophils # 11.3 H (1.3-7.7) k/uL Sodium 136 L (137-145) mmol/L BUN 25 H (9-20) mg/dL Glucose 141 H (74-99) mg/dL ALT 58 H (4-49) U/L Alkaline Phosphatase 138 H (38-126) U/L
--- NOTE | 2024-10-17 15:48 | CA ---
Transthoracic Echo Report Name: Travis Dhillon Age: 58 Gender: M : 1965 Exam Date: 10/17/2024 10:18 Exam Location: [facility] Echo Ht (in): 70 Wt (lb): 260 Ordering Physician: Alicia Paez Attending/Referring Phys: [id number], [employer] Shelbi Tobar RDCS Procedure CPT: Indications: LV function, CP, hx of afib Cardiac Hx: Technical Quality: Technically difficult study Contrast 1: Definity Total Dose (mL): 2 Contrast 2: Total Dose (mL): MEASUREMENTS (Male / Female) Normal Values 2D ECHO LV Diastolic Diameter PLAX 5.6 cm 4.2 - 5.9 / 3.9 - 5.3 cm LV Systolic Diameter PLAX 5.0 cm IVS Diastolic Thickness 1.2 cm 0.6 - 1.0 / 0.6 - 0.9 cm LVPW Diastolic Thickness 1.6 cm 0.6 - 1.0 / 0.6 - 0.9 cm LV Relative Wall Thickness 0.5 RV Internal Dim ED PLAX 3.5 cm LVOT Diameter 1.8 cm LV Diastolic Volume MOD BP 175.1 cm??? 67 - 155 / 56 - 104 cm??? LV Systolic Volume MOD BP 83.7 cm??? - 58 / 19 - 49 cm??? LV Ejection Fraction MOD BP 52.2 % >= 55 % LV Cardiac Index MOD BP 1820.5 cm???/min???m??? LV Diastolic Volume MOD 4C 155.1 cm??? LV Systolic Volume MOD 4C 70.3 cm??? LV Ejection Fraction MOD 4C 54.7 % LV Cardiac Index MOD 4C 1688.9 cm???/min???m??? LV Diastolic Length 4C 9.1 cm LV Systolic Length 4C 8.4 cm LV Diastolic Volume MOD 2C 192.5 cm??? LV Systolic Volume MOD 2C 91.7 cm??? LV Ejection Fraction MOD 2C 52.4 % LV Cardiac Index MOD 2C 2007.5 cm???/min???m??? LV Diastolic Length 2C 8.8 cm LV Systolic Length 2C 7.5 cm LA Volume 92.7 cm??? 18 - 58 / 22 - 52 cm??? LA Volume Index 37.7 cm???/m??? 16 - 28 cm???/m??? M-MODE Aortic Root Diameter MM 2.8 cm LA Systolic Diameter MM 4.9 cm LA Ao Ratio MM 1.8 AV Cusp Separation MM 1.8 cm DOPPLER AV Peak Velocity 156.2 cm/s AV Peak Gradient 9.8 mmHg AV Mean Velocity 95.3 cm/s AV Mean Gradient 4.5 mmHg AV Velocity Time Integral 23.6 cm LVOT Peak Velocity 117.3 cm/s LVOT Peak Gradient 5.5 mmHg LVOT Velocity Time Integral 18.1 cm LVOT Stroke Volume 46.7 cm??? LVOT Stroke Volume Index 20.0 ml/m??? LVOT Cardiac Index 930.9 cm???/min???m??? AV Area Cont Eq vti 2.0 cm??? AV Area Cont Eq pk 1.9 cm??? MV Area PHT 3.7 cm??? Mitral E Point Velocity 99.9 cm/s Mitral A Point Velocity 0.2 cm/s Mitral E to A Ratio 662.3 MV Deceleration Time 205.8 ms FINDINGS Left Ventricle Mildly increased septal wall thickness. Mildly increased left ventricular diastolic volume. Severely increased left ventricular systolic volume. Mildly decreased left ventricular ejection fraction. Left ventricular ejection fraction is estimated at 40 %. Right Ventricle Normal right ventricular size and function. Right ventricular systolic pressure within normal limits. Right Atrium Normal right atrial size. Left Atrium Moderately increased left atrial volume. Mildly increased left atrial area. Mitral Valve Structurally normal mitral valve. Mild mitral regurgitation. Aortic Valve Trileaflet aortic valve. Thickened aortic valve without stenosis. Tricuspid Valve Tricuspid valve not well visualized. Mild tricuspid regurgitation. Pulmonic Valve Structurally normal pulmonic valve. Trace pulmonic regurgitation. Pericardium Small pericardial effusion. Aorta Normal size aortic root and proximal ascending aorta. CONCLUSIONS Normal LV size, global decrease in contractility estimate ejection fraction of about 40%. Technically difficult Doppler study no clear-cut significant abnormalities. There is a small circumferential pericardial effusion. Right- sided pressures are not well quantified Previewed by: Dr. Manolo Hall MD (Electronically Signed) Final Date: 17 October 2024 15:48
--- NOTE | 2024-10-17 21:03 | CT ---
EXAMINATION TYPE: CT angio chest CT DLP: 537.30 mGycm, Automated exposure control for dose reduction was used. DATE OF EXAM: 10/17/2024 8:55 PM COMPARISON: Chest radiograph 10/12/2024, CT chest 10/01/2017 CLINICAL INDICATION:Male, 58 years old with history of Elevated D Dimer; Elevated D-Dimer. TECHNIQUE/CONTRAST: CTA scan of the thorax is performed with IV Contrast, patient injected with 100 ml mL of Isovue 370, pulmonary embolism protocol. MIP images are created and reviewed. FINDINGS: Pulmonary Artery: There is no evidence for a filling defect within the pulmonary vasculature to sugge st acute pulmonary embolism. The pulmonary artery is of normal size. Lungs/Pleura: Small left pleural effusion with associated atelectasis. Minimal right lower lobe linea r atelectasis. No pneumothorax. No focal consolidation. No suspicious pulmonary nodule or mass. Airway: Large airways are patent. Adhesions identified within the trachea extending into the right ma instem bronchus. Heart: Cardiomegaly is demonstrated.Small pericardial effusion measuring up to 1 cm in thickness. Mod erate coronary artery calcifications present. Vasculature: No evidence of aortic aneurysm. Mediastinum: No evidence of adenopathy. Musculoskeletal: No acute osseous abnormalities. DISH of the mid to lower thoracic spine. Soft Tissues: Moderate bilateral gynecomastia. Lower neck: No significant findings. Upper Abdomen: Possible hepatic steatosis. IMPRESSION: 1. No evidence of pulmonary embolism. 2. Small left pleural effusion with associated atelectasis. 3. Cardiomegaly with small pericardial effusion. [facility], , 10/17/2024 9:01 PM
[2024-10-17] MEDS: QUEtiapine 100 MG TAB PO SCH (21:46)
[2024-10-17] MEDS: QUEtiapine 400 MG TAB PO SCH (21:46)
[2024-10-18 07:30] VITALS: BP 137/76; PULSE 100; RESP 17; TEMP 98
--- NOTE | 2024-10-18 08:08 | P.PN ---
Subjective Progress Note Date: 10/18/24 This is Iain Evans NP, I'm dictating on behalf of Dr. Majano's H&P and A&P. Patient was interviewed and examined. Patient is a pleasant 58-year-old male who presented to the hospital with chest discomfort. Patient was found to have chest pain with deep inspiration. 2D echo was ordered and reveals an EF of 40% with global decrease in contractility, normal LV size, small circumferential pericardial effusion. Patient states that he feels okay today. He is still experiencing some mild pain with deep inspiration. Troponins have been negative x 3. He has no other major complaints. GENERAL: Well-appearing, well-nourished and in no acute distress. NECK: Supple without JVD or thyromegaly. LUNGS: Breath sounds clear to auscultation bilaterally. Respiration equal and unlabored. No wheezes, rales or rhonchi. HEART: Regular rate and rhythm without murmurs, rubs or gallops. S1 and S2 heard. EXTREMITIES: Normal range of motion, no edema. No clubbing or cyanosis. Peripheral pulses intact and strong. VITALS: Temp 98.0, pulse 100, blood pressure 137/76, O2 saturation 95% on CPAP TELEMETRY: Atrial fibrillation LABS: No new labs since 10/17/2024 IMPRESSION: 1. Chest pain, reproducible with deep inspiration, small pericardial effusion on echo 2. CAD with previous stenting of the LAD 3. Longstanding persistent A-fib 4. Frequent PVCs 5. Hypertension 6. Hyperlipidemia 7. Diabetes 8. Obesity PLAN: Pain is likely secondary to pericarditis. Start colchicine 0.6 mg daily for 14 days. Increase metoprolol succinate to 50 mg daily. Take in the a.m. Take lisinopril in the evening. From a cardiology standpoint the patient may be discharged. Thank you for allowing us to participate in the care of this patient. Objective - Vital Signs Vital signs: Vital Signs Temp 98.0 F 10/18/24 07:29 Pulse 100 10/18/24 07:29 Resp 17 10/18/24 07:29 BP 137/76 10/18/24 07:29 Pulse Ox 95 10/18/24 07:29 FiO2 Intake & Output 10/17/24 10/18/24 10/18/24 18:59 06:59 18:59 Intake Total 100 Balance 100 Weight 117.934 kg Intake: Oral 100 Other: Voiding Method Toilet # Voids 1 - Labs CBC & Chem 7: 10/17/24 01:19 10/17/24 01:19 Labs: Abnormal Lab Results - Last 24 Hours (Table) 10/17/24 Range/Units 18:22 D-Dimer 0.67 H (<0.60) mg/L FEU
[2024-10-18] MEDS ORDERED: ASPIRIN 325 MG TAB PO SCH (09:00)
[2024-10-18] MEDS: METOPROLOL SUCCINATE (ER) 50 MG TAB.ER.24H PO SCH (09:05)
[2024-10-18] MEDS: ASPIRIN 81 MG PO SCH (09:06)
[2024-10-18] MEDS: COLCHICINE 0.6 MG EACH PO SCH (09:06)
[2024-10-18 09:53] LABS: Basophils # (A) 0.03 X 10*3/uL (0.00-0.10); Basophils % (A) 0.2 %; Eosinophils # (A) 0.25 X 10*3/uL (0.04-0.35); HCT 36.4 % (39.6-50.0); HGB 11.6 g/dL (13.0-17.0); Lymphocytes # (A) 1.25 X 10*3/uL (0.90-5.00); MCH 26.9 pg (27.0-32.0); MCHC 31.9 g/dL (32.0-37.0); MCV 84.5 FL (80.0-97.0); Mean Platelet Volume 10.1 FL (9.5-12.2); Monocytes # (A) 1.41 X 10*3/uL (0.20-1.00); Monocytes % (A) 11.3 %; NRBC Per 100 WBC 0 X 10*3/uL (0.00-0.01); Neutrophils # (A) 9.53 X 10*3/uL (1.80-7.70); Neutrophils % (A) 76.3 %; Platelet Count 240 X 10*3/uL (140-440); RBC 4.31 X 10*6/uL (4.40-5.60); RDW 13.6 % (11.5-14.5)
[2024-10-18 10:17] LABS: ALT 40 U/L (10-49); AST 18 U/L (14-35); Albumin 3.5 g/dL (3.8-4.9); Albumin/Globulin Ratio 1.25 Ratio (1.60-3.17); Alkaline Phosphatase 134 U/L (41-126); BUN/Creat Ratio 22.62 Ratio (12.00-20.00); Blood Urea Nitrogen 36.2 mg/dL (9.0-27.0); Carbon Dioxide 21.1 mmol/L (21.6-31.8); Chloride 101 mmol/L (96-109); Chol/HDL Ratio 2.42 Ratio; Globulin 2.8 g/dL (1.6-3.3); Glucose 118 mg/dL (70-110); LDL Cholesterol,Calculated 33.8 mg/dL (0.0-131.0); Potassium 4.4 mmol/L (3.5-5.5); Sodium 134 mmol/L (135-145); Total Bilirubin 1.5 mg/dL (0.3-1.2); Total Protein 6.3 g/dL (6.2-8.2); VLDL Calculation 17.82 mg/dL (5.00-40.00)
--- NOTE | 2024-10-18 12:28 | P.DS ---
Providers Date of admission: 10/17/24 03:29 Attending physician: Evelyn Major Consults: 10/17/24 03:26 Consult Physician Routine Consulting Provider: Louie Lopez Consult Reason/Comments: chest pain Do you want consulting provider notified?: Yes Primary care physician: Kaylah Stock [facility] Course: Discharge Diagnosis: #Acute pericarditis #chest pain, ACS ruled out #Chronic A-fib #Hyperglycemia, resolved Hospital Course: Patient is a 58-year-old male with a history of CAD status post LAD stent in 2023, A-fib on anticoagulation, hyperlipidemia, hypertension, asthma, anxiety, depression obstructive sleep apnea on CPAP presented to the ER with a complaint of left-sided sharp chest pain in the afternoon yesterday while he was driving home. Patient [facility] for concerns regarding ACS. Patient had a similar episode of chest pain on Sunday and came to the [facility] but left AMA. Patient reports that his chest pain is constant associated with mild shortness of breath which is worse with breathing and movements such as leaning forward. He had a upper respiratory tract infection 1 month ago which took him about 3 weeks to recover from. Otherwise, patient denies any orthopnea, PND, swelling of legs. No recent travel. Patient is a lifetime non-smoker and drinker and denies use of illicit drugs. At the time of the interview patient reports that this is pain is still there but has subsided and is currently 4/10. Initial laboratory work in the ER shows WBC 4.1, hemoglobin 12.7, sodium 136, BUN 25, creatinine 1.05, glucose 141, ALT 50, ALP 138, troponin < 0.012 (subsequent troponin I are < 0.012) EKG in the ER shows atrial fibrillation with PVCs Chest x-ray shows hypoventilation with bibasilar atelectasis Vital signs on arrival shows temperature 98.2 F, pulse rate 109, respiratory 18, blood pressure 170/67, oxygen saturation 98% room air Cardiology was consulted. Troponin trend was flat. Transthoracic echocardiogram shows LVEF of 40% with normal LV size. Mildly increased septal wall thickness. Mildly increased left ventricular diastolic volume. Severely increased left ventricular systolic volume. CT angio of chest was negative for pulm embolism. Patient reports marked improvement in his chest pain. Patient is stable and medically optimized for discharge. Patient advised to continue to follow-up with PCP and cardiology as an outpatient. Pharmacy called in for colchicine 0.6 mg twice daily and metoprolol succinate 50 mg once daily. Rest of the home medications are resumed and to be taken as directed. Discharge disposition: Home with self-care Vital signs reviewed. General: non toxic, no distress, appears at stated age, obese Derm: no unusual rashes/lesions, warm Head: atraumatic, normocephalic, symmetric Eyes: EOMI, no lid lag, anicteric sclera, pupils equal round reactive to light ENT: Nose and ears atraumatic Neck: No cervical lymphadenopathy, trachea midline, supple Mouth: no lip lesion, mucus membranes moist Cardiovascular: S1S2 reg, no murmur, positive dorsalis pedis pulse bilateral, no edema Lungs: CTA bilateral, no rhonchi, no rales, no accessory muscle use Abdominal: soft, nontender to palpation, no guarding Ext: muscle strength 5 out of 5 in all 4 extremities grossly, no gross muscle atrophy, no contractures, Neuro: CN II-XI grossly intact, no gross focal neuro deficits Psych: Alert, oriented, appropriate affect Dictation was produced using [employer] dictation software. Please excuse any grammatical, word or spelling errors. Patient Condition at Discharge: Stable Plan - Discharge Summary Discharge Rx Participant: Yes New Discharge Prescriptions: New Colchicine [Colcrys] 0.6 mg PO BID #60 each Metoprolol Succinate (ER) [Toprol XL] 50 mg PO DAILY #30 tab Continue Omeprazole [PriLOSEC] 20 mg PO BID ALPRAZolam [Xanax] 1 - 2 mg PO TID PRN PRN Reason: Anxiety DULoxetine HCL [Cymbalta] 60 mg PO BID Atorvastatin [Lipitor] 80 mg PO QAM Albuterol Inhaler [Ventolin Hfa Inhaler] 1 puff INHALATION RT-Q4H PRN PRN Reason: Shortness Of Breath Furosemide [Lasix] 40 mg PO QAM QUEtiapine [SEROquel] 400 mg PO HS HYDROcodone/APAP 7.5-325MG [[place] 7.5-325] 1 tab PO Q12H PRN PRN Reason: Pain lisinopriL [Prinivil] 20 mg PO DAILY QUEtiapine [SEROquel] 200 mg PO HS Montelukast Sodium 10 mg PO DAILY Apixaban [Eliquis] 5 mg PO BID Aspirin EC [Ecotrin Low Dose] 81 mg PO DAILY Multivit-Min/FA/Lycopen/Lutein [Centrum Silver Tablet] 1 tab PO DAILY tadalafiL [Cialis] 20 mg PO DAILY Tirzepatide [Mounjaro] 15 mg SQ TH Discontinued Metoprolol Tartrate [Lopressor] 25 mg PO QAM Discharge Medication List ALPRAZolam [Xanax] 1 - 2 mg PO TID PRN 01/12/14 [History] DULoxetine HCL [Cymbalta] 60 mg PO BID 01/12/14 [History] Omeprazole [PriLOSEC] 20 mg PO BID 01/12/14 [History] Atorvastatin [Lipitor] 80 mg PO QAM 12/26/17 [History] Albuterol Inhaler [Ventolin Hfa Inhaler] 1 puff INHALATION RT-Q4H PRN 12/12/20 [History] lisinopriL [Prinivil] 20 mg PO DAILY 12/12/20 [History] Furosemide [Lasix] 40 mg PO QAM 05/23/21 [History] QUEtiapine [SEROquel] 200 mg PO HS 05/23/21 [History] Montelukast Sodium 10 mg PO DAILY 01/10/23 [History] Apixaban [Eliquis] 5 mg PO BID 12/26/23 [History] Aspirin EC [Ecotrin Low Dose] 81 mg PO DAILY 10/17/24 [History] HYDROcodone/APAP 7.5-325MG [[place] 7.5-325] 1 tab PO Q12H PRN 10/17/24 [History] Multivit-Min/FA/Lycopen/Lutein [Centrum Silver Tablet] 1 tab PO DAILY 10/17/24 [History] QUEtiapine [SEROquel] 400 mg PO HS 10/17/24 [History] Tirzepatide [Mounjaro] 15 mg SQ TH 10/17/24 [History] tadalafiL [Cialis] 20 mg PO DAILY 10/17/24 [History] Colchicine [Colcrys] 0.6 mg PO BID #60 each 10/18/24 [Rx] Metoprolol Succinate (ER) [Toprol XL] 50 mg PO DAILY #30 tab 10/18/24 [Rx] Follow up Appointment(s)/Referral(s): Louie Lopez MD [STAFF PHYSICIAN] - 1 Week Kaylah Stock DO [Primary Care Provider] - 1 Week Patient Instructions/Handouts: Chest Pain (DC), Acute Pericarditis (DC) Activity/Diet/Wound Care/Special Instructions: Please 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 Please take colchicine 0.6 mg twice daily metoprolol XL 50 mg once daily. Discharge Disposition: HOME SELF-CARE
== END 2024-10-18 12:44 | disposition home or self-care (01) ==
LOC: EC 01:11 → 3SCARD 03:29 → UNDOADMOB 03:29 → 3SCARD 03:30 → OBSVTOIN 03:30 → INTOOBSV 03:30 → 6NMEDSUR 09:00 → 3SCARD 09:00 → 6NMEDSUR 12:27 → 3SCARD 12:46 → 6NMEDSUR 12:46 → UNDOADMOB 12:46 → 6NMEDSUR 15:01 → UNDODISOB 10-18 12:44
PROVIDERS: ADMIT Hospitalist; ATTEND Hospitalist
DX: I30.9 Acute pericarditis, unspecified (principal); I48.11 Longstanding persistent atrial fibrillation; E11.65 Type 2 diabetes mellitus with hyperglycemia; I10 Essential (primary) hypertension; J45.909 Unspecified asthma, uncomplicated; I25.10 Atherosclerotic heart disease of native coronary artery without angina pectoris; I49.3 Ventricular premature depolarization; G47.33 Obstructive sleep apnea (adult) (pediatric); E78.5 Hyperlipidemia, unspecified; F41.9 Anxiety disorder, unspecified; F32.A Depression, unspecified; E66.9 Obesity, unspecified; Z68.37 Body mass index [BMI] 37.0-37.9, adult; Z79.01 Long term (current) use of anticoagulants; Z79.82 Long term (current) use of aspirin; Z79.85 Long-term (current) use of injectable non-insulin antidiabetic drugs; Z79.84 Long term (current) use of oral hypoglycemic drugs; Z79.899 Other long term (current) drug therapy; Z88.8 Allergy status to other drugs, medicaments and biological substances; Z95.5 Presence of coronary angioplasty implant and graft
CPT/HCPCS: 96374; 96375; 99291; 36415; 93005; 93306; 85379; 80061; 80053 ×2; 83735; 84484; 85025 ×2; 85610; 85730; 71045; 71275; G0378 ×3; J2270; Q9957; Q9967; 99285

== ENCOUNTER → 2025-01-27 | Day surgery (SDC) | payer MEDICARE ==
[~2025-01-27] MED LIST changes: +HEPARIN SODIUM,PORCINE (1 ML) 2,500 UNIT in SODIUM CHLORIDE 0.9% 250 ML IRRIGATION PRN; +HEPARIN SODIUM,PORCINE 10,000 UNIT in SODIUM CHLORIDE 0.9% 1,000 ML IRRIGATION PRN; +RX INFO: IV CONTRAST WAS GIVEN 1 EACH MISC MISCELLANE PRN; +SODIUM CHLORIDE 0.9% 1,000 ML IV SCH
[2025-01-27] MEDS: IV FLUID CONTINUATION 1,000 ML IV ONE (07:45)
[2025-01-27 07:57] VITALS: TEMP 98.6
[2025-01-27] MEDS: SODIUM CHLORIDE 0.9% 1,000 ML in EMPTY BAG 1 BAG IV SCH (07:58)
[2025-01-27 08:00] LABS: Glucose,Whole Blood 119 mg/dL (70-110)
[2025-01-27 08:22] LABS: African American GFR (CKD) 62 (>60 ml/min/1.73 sqM); Anion Gap 11 mmol/L; Blood Urea Nitrogen 18 mg/dL (9-20); Calcium 8.8 mg/dL (8.4-10.2); Carbon Dioxide 21 mmol/L (22-30); Chloride 108 mmol/L (98-107); Glucose 122 mg/dL (74-99); Non-African American GFR(CKD) 54 (>60 ml/min/1.73 sqM); Potassium 3.9 mmol/L (3.5-5.1); Sodium 140 mmol/L (137-145)
[2025-01-27 08:24] LABS: Basophils # (A) 0.03 10*3/uL (0.00-0.10); Basophils % (A) 0.5 %; Eosinophils # (A) 0.19 10*3/uL (0.04-0.35); Eosinophils % (A) 2.9 %; HCT 47.4 % (39.6-50.0); HGB 15.4 g/dL (13.0-17.0); Lymphocytes # (A) 2.07 10*3/uL (0.90-5.00); Lymphocytes % (A) 31.3 %; MCH 27.0 pg (27.0-32.0); MCHC 32.5 g/dL (32.0-37.0); MCV 83.2 fL (80.0-97.0); Monocytes # (A) 0.91 10*3/uL (0.20-1.00); Monocytes % (A) 13.7 %; Neutrophils # (A) 3.40 10*3/uL (1.80-7.70); Neutrophils % (A) 51.3 %; Platelet Count 169 10*3/uL (140-440); RBC 5.70 10*6/uL (4.40-5.60); RDW 16.1 % (11.5-14.5); WBC 6.62 10*3/uL (4.50-10.00)
[2025-01-27] MEDS: ASPIRIN 325 MG TAB PO ONE (08:47)
[2025-01-27] MEDS: MAG HYDROX/AL HYDROX/SIMETH 30 ML CUP PO PRN (08:48)
[2025-01-27] MEDS: MIDAZOLAM 2 MG/2 ML VIAL IVP ONE ×2 (09:40→09:45)
[2025-01-27] MEDS: fentaNYL (PF) 50 MCG/1 ML VIAL IVP ONE ×2 (09:40→09:46)
[2025-01-27] MEDS: LIDOCAINE 2% (PF) 20 MG/ML 5 ML VIAL SQ ONE (09:40)
[2025-01-27] MEDS: HEPARIN SODIUM 1,000 UN/ML (10ML VL) IVP ONE (09:45)
[2025-01-27] MEDS: HEPARIN SODIUM,PORCINE (1 ML) 2,500 UNIT in SODIUM CHLORIDE 0.9% 250 ML IRRIGATION ONE (09:46)
[2025-01-27] MEDS: HEPARIN SODIUM,PORCINE 10,000 UNIT in SODIUM CHLORIDE 0.9% 1,000 ML IRRIGATION ONE (09:46)
[2025-01-27] MEDS: IOPAMIDOL-370 100ML BTL INTRATHECA ONE (09:58)
--- NOTE | 2025-01-27 10:13 | P.PCN ---
Date of Procedure: 01/27/25 Operative Findings: CARDIAC CATHETERIZATION PERFORMING PHYSICIAN: Louie Lopez MD, RPVI PROCEDURE PERFORMED: 1. Selective right and left coronary angiogram 2. Left heart catheterization 3. Ultrasound-guided access of the right radial artery INDICATION: Symptomatic 59-year-old gentleman with cardiomyopathy and abnormal stress test COMPLICATION: None APPROACH: Right radial artery LEVEL OF SEDATION: Moderate with a sedation length of 16 minutes PROCEDURE DESCRIPTION: After obtaining an informed consent, the patient was brought to cardiac greens laborer. Local anesthesia was performed using lidocaine subcutaneously. The right radial artery was cannulated using Seldinger technique, under ultrasound guidance, the guidewire passed easily, following that we advanced a 5-[place] sheath dilator assembly, the wire and dilator were removed and sheath was flushed. Following that, 2 mg of verapamil along with 5000 unit heparin were given. Selective right and left coronary angiogram using a 5-[place] JR4 and JL 3.5 catheters. Following that we did left heart catheterization using 5-[place] pigtail catheter. The procedure was completed there was no complication. SELECTIVE CORONARY ANGIOGRAM: The right coronary artery: Large caliber vessel and a dominant vessel but appears to be normal with no evidence of high-grade stenosis Left main: Is angiographically normal The left circumflex: Large caliber vessel nondominant vessel with no evidence of high-grade stenosis The left anterior descending artery: The LAD stent appeared to be patent. The LAD gives rise into diagonal branch which has about 40% lesion appears to be the same as before HEMODYNAMICS: The LVEDP was 16 mmHg with no significant gradient across aortic valve CONCLUSION: 1. Patent stent in the LAD 2. Mild to moderate disease involving a diagonal branch appears to be the same as before POSTPROCEDURE MANAGEMENT: Medical treatment
[2025-01-27 10:22] VITALS: RESP 14
[2025-01-27 12:03] VITALS: BP 114/73; PULSE 74
== END ==
LOC: CATHCVL 07:17
PROVIDERS: ATTEND Internal Medicine Interventional Cardiology
DX: I42.9 Cardiomyopathy, unspecified (principal); I25.10 Atherosclerotic heart disease of native coronary artery without angina pectoris; E78.5 Hyperlipidemia, unspecified; I10 Essential (primary) hypertension; I48.0 Paroxysmal atrial fibrillation; E66.3 Overweight; E11.9 Type 2 diabetes mellitus without complications; Z79.85 Long-term (current) use of injectable non-insulin antidiabetic drugs; Z79.01 Long term (current) use of anticoagulants; Z79.899 Other long term (current) drug therapy; Z88.8 Allergy status to other drugs, medicaments and biological substances
CPT/HCPCS: 99152; 93458; 80048; 85025; C1769; C1894; J2250; J1644 ×3; Q9967; J2003; J3010